=== PATIENT | male | born 1955 | race Caucasian/White ===

== ENCOUNTER 2024-11-25 09:24 | Outpatient (AMB) | payer MEDICARE, SELFPAY ==
--- NOTE | 2024-11-25 08:22 | MHC.OFFVIS ---
Vital Signs 11/25/24 09:30 Height 5 ft 10 in Weight 201 lb BMI 28.8 BP 122/64 Blood Pressure Location Rt brachial Pulse 74 Pulse Source Pulse Oximeter Pulse Oximetry (%) 98 Oxygen Delivery Method Room Air Intake Visit Reasons: asthma/ allergies Allergies amoxicillin Adverse Reaction (Verified 11/25/24 09:39) upset stomach Medication List - Last Reconciled 11/25/24 by Maxine Brown LPN albuterol sulfate 90 mcg/actuation 2 puffs inhalation Q6H PRN atorvastatin 10 mg PO DAILY cetirizine 10 mg PO DAILY PRN eletriptan (Relpax) take 1 tab at onset of headache; if no relief, may repeat 1 tab after at least 2 hrs; max = 2 tabs/24 hrs PO fluticasone furoate 100 mcg/actuation (Arnuity Ellipta) 1 inh inhalation DAILY fluticasone propionate 50 mcg/actuation (Children's Flonase Allergy Relief) 1 spray intranasal DAILY lotilaner 0.25% (Xdemvy) 1 drp ophthalmic (eye) Q12H PRN venlafaxine ER 225 mg PO DAILY HPI HPI asthma/ allergies: Details: Zak is a pleasant 69 year old male, less than 5 pack year history smoker, with underlying asthma. He was referred by PCP for pulmonary evaluation. He had previously been prescribed Arnuity however was only using intermittently. When he was not using consistently he reported wheezing, dyspnea as well as cough. Recent chest x-ray performed at [facility] reportedly unremarkable. He started using consistently for the last 3 weeks and has complete resolution of symptoms. He currently denies any respiratory symptoms. He reports asthma diagnosed as an adult, never required intubation hospitalizations related to respiratory distress. He endorses seasonal allergies using Flonase and Zyrtec with good effect. Denies any pets at home. Denies any recent allergy testing. Denies history of recurrent respiratory symptoms. 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 He denies any pertinent family history. [facility] Social History (Updated 11/25/24 @ 09:38 by Maxine Brown LPN) Patient Tobacco Use Status: Former Tobacco user Cigarette Packs Per Day: 1 Years Smoked: 3 Review of Systems Const Denies chills, Denies excessive sweating, Denies fever(s), Denies headache(s) and Denies night sweats Eyes Denies dry eyes, Denies irritation and Denies itchy eyes ENT Reports Normal hearing present, Denies headache(s), Denies nasal congestion, Denies nasal discharge, Denies post nasal drip and Denies sore throat Card Denies chest pain, Denies chest pain at rest, Denies chest pain with activity, Denies claudication, Denies leg edema, Denies dyspnea, Denies dyspnea on exertion, Denies orthopnea and Denies paroxysmal nocturnal dyspnea Resp Denies chest congestion, Denies cough, Denies excessive phlegm production, Denies pain on inspiration, Denies pain with cough, Denies dyspnea, Denies dyspnea on exertion, Denies stridor and Denies wheezing Musc Denies myalgias Neuro Reports Normal hearing present and Denies headache(s) Endo Denies excessive sweating Frandy/Lymph Denies lymphadenopathy Aller/Immun Denies itchy eyes, Denies seasonal rhinorrhea and Denies wheezing Physical Exam Vital Signs: Last Vital Signs Pulse 74 11/25/24 09:30 BP 122/64 11/25/24 09:30 Pulse Ox 98 11/25/24 09:30 Oxygen Delivery Method Room Air 11/25/24 09:30 BMI result Body Mass Index 28.8 Const General: cooperative, healthy appearing, comfortable, no acute distress, well developed and alert Orientation/consciousness: patient oriented x3 Limitations: no limitations HEENT Head: Yes normal to inspection, Yes normocephalic and Yes atraumatic Ears: hearing grossly normal bilaterally and external ears normal Eyes General: appearance normal, both eyes and all related structures Eyelids: Yes eyelids normal Sclerae: sclerae normal EOM: EOMs intact bilaterally Neck Neck: Yes normal visual inspection and Yes no lymphadenopathy Lymphatic: no lymphadenopathy noted Chest Chest palpation & inspection: normal inspection of the chest Resp Effort & Inspection: normal respiratory effort, able to speak in complete sentences, no audible wheezes, no cough, no stridor, not tachypneic, no tripod positioning and no use of accessory muscles Auscultation: clear to auscultation bilaterally Cardio Jugular venous distension: no JVD Rate: regular rate Rhythm: regular rhythm Skin Other: warm, dry General skin exam: no rashes or lesions noted Neuro General: patient oriented x3 Cranial nerves: Yes Normal hearing present Cognition (Neuro): normal cognition Gait exam (Neuro): Normal gait present Extrem General: Yes normal to inspection, Yes capillary refill normal, Yes no clubbing, cyanosis or edema and Yes no pedal edema Psych Appearance: grossly normal and well kempt Speech and movement: Normal speech and movement present and Clear speech present Affect: normal affect Attitude: cooperative Thought process: Normal thought process present Thought content: Normal thought content present Insight: Good insight present (Psych) Judgement: Good judgement present (Psych) Assessment & Plan Assessment & Plan (1) Asthma: Code(s): J45.909 - Unspecified asthma, uncomplicated Category: Medical (2) Environmental allergies: Code(s): Z91.09 - Other allergy status, other than to drugs and biological substances Category: Medical Plan Zak presents for pulmonary evaluation with known history of asthma. Currently denies any respiratory symptoms and has been well maintained on Arnuity. He did report increased cost of Arnuity, will trial Flovent. Will send for PFT to assess obstructive defect as well as RAST assessment allergic component. Recent chest x-ray reportedly unremarkable will attempt to obtain, may consider chest CT given prior occupational exposures. All questions were answered and patient is in agreement of plan. Will follow-up in 8-10 weeks or sooner if needed. Orders: Orders Immunoglobulin E 11/25/24 Z91.09 - Other allergy status, other than to drugs and biological substances Complete Blood Count Auto Diff 11/25/24 Z91.09 - Other allergy status, other than to drugs and biological substances Resp Allergy Profile Region I 11/25/24 Z91.09 - Other allergy status, other than to drugs and biological substances PFT pulmonary function test Today J45.909 - Unspecified asthma, uncomplicated Medications: New fluticasone propionate 110 mcg/actuation administer with spacer 2 puffs inhalation BID 12 grams 3RF Coding Level of Care Code New Pt Level 4 (16573) Diagnoses Asthma J45.909 Environmental allergies Z91.09
[2024-11-25 09:30] VITALS: BP 122/64; PULSE 74; O2SAT 98; BMI 28.8
--- OUTSIDE RECORDS SUMMARY | 2024-11-25 10:22 | XMS_ITS | Encounter Summary ---
Author Organization [facility] Address [address] [facility] [address] [place] [id number] Phone Care Team Providers Care Shank Archer Name Role Phone Mike Watkins MD Primary Care Provider + [phone] Mike Watkins MD Unavailable [phone] Mike Watkins MD Unavailable [phone] Encounter Details Date Type Department Care Team (Late st Contact Info) Description 12/01/2021 Procedure Pass [facility] Admitting Dept Virtual Department [address] [place] [address] Social History Tobacco Use Types Packs/Day Years Used Date Smoking Tobacco: Former Cigarettes 1 7 0 09/30/1972 - 09/30/1979 Smokeless Tobacco: Never Alcohol Use Standard Drinks/Week Comments Yes 14 (1 standard drink = 0.6 oz pu re alcohol) Child or Family Care Answer Date Record ed Do you have problems with on e of the following making it difficult for you to work, study, or receive health care? No 12/30/2020 Education Answer Date Recorded Are you interested in help w ith more adult education (for example, completing high school, GED, job training, learning the [place] language, technical skills, or developing parenting skills)? No 12/30/2020 Food Answer Date Recorded Within the past 6 months we worried whether our food would run out before we got money to buy more. Never True 12/30/2020 Within the past 6 months the food we bought just didn't last and we didn't have enough money to get more. Never True Residential Stability Answer Date Recor ded What is your housing situation today? I have connie sing 12/30/2020 How many times have you move d in the past 12 months? Zero (I did not move) 12/30/2020 06 Are you worried that in t he next 2 months, you may not have your own housing to live in? No 12/30/2020 Paying for Meds Answer Date Recorded Do you have trouble paying for medicines? No 12/30/2020 Paying Utility Bills Answer Date Record ed Do you have trouble paying your heating or elect ricity bill? No 12/30/2020 Transportation Answer Date Recorded Has the lack of transportati on kept you from medical appointments or from getting medications? No 12/30/2020 Unemployment Answer Date Recorded Are you currently unemployed or working on a part-time or temporary basis, and looking for work? Yes 12/30/2020 Sex and Gender Information Value Date Recorded Sex Assigned at Not on file Gender Identity Not on file Sexual Orientation Not on file documented as of this encounter Plan of Treatment Not on file documented as of this encounter Visit Diagnoses Not on filedocumented in this encounter Additional Health Concerns Infection Onset Date Last Indicated Resolved Time CoV-Risk 03/12/2022 03/12/2022 03/23/2022 1:22 AM EDT CoV-Presumed 07/18/2022 07/18/2022 08/08/2022 1:22 AM EST CoV-Risk 10/31/2023 10/31/2023 11/11/2023 1:24 AM EDT Assessment Noted Time PHQ-2 Depression Total Score: 0 12/31/19 21 2:32 PM EDT documented as of this encounter Care Teams Shank Archer Relationship Specialty Start Date End Date Mike Watkins MD [address] [place] [address], [address] [place] [address] PCP - General 05/23/17 Mike Watkins MD [address] [place] [address], [address] [place] [address] [email or web address] Insurance Assigned Provider 12/06/1802/10/22 Mike Watkins MD [address] [place] [address], [address] [place] [id number] [email or web address] Insurance Assigned Provider 11/09/23 documented as of this encounter Additional Source Comments The information contained in this document represents components of the legal health record. It is not the complete legal health record.[facility]
--- OUTSIDE RECORDS SUMMARY | 2024-11-25 10:22 | XMS_ITS | Encounter Summary ---
Author Organization [facility] Address [address] [facility] [address] [place] [address] Phone Care Team Providers Care Aviation Electronics Technician Name Role Phone Mike Watkins MD Primary Care Provider [phone]- [phone] Mike Watkins MD Unavailable [phone] Mike Watkins MD Unavailable [phone] Encounter Details Date Type Department Care Team (Late st Contact Info) Description 10/31/2018 Procedure Pass [facility] Admitting Dept Virtual Department [address] [place] [address] Social History Tobacco Use Types Packs/Day Years Used Date Smoking Tobacco: Former Cigarettes 1 7 0 09/30/1972 - 09/30/1979 Smokeless Tobacco: Never Alcohol Use Standard Drinks/Week Comments Yes 14 (1 standard drink = 0.6 oz pu re alcohol) Sex and Gender Information Value Date Recorded Sex Assigned at Not on file Gender Identity Not on file Sexual Orientation Not on file documented as of this encounter Plan of Treatment Not on file documented as of this encounter Visit Diagnoses Not on filedocumented in this encounter Additional Health Concerns Infection Onset Date Last Indicated Resolved Time CoV-Risk Comment:Per Ambulatory Triage Form 08/02/2021 08/17/202108/18 8:27 PM EST CoV-Exposed Comment:Recent close contact documented in the COVID-19 PCR/PRO order 08/02/2021 08/02/2021 08/17/2021 1:[address] COVID-19 08/17/2021 08/17/202109/07/2021 1:24 AM EST CoV-Risk 03/12/2022 03/12/2022 03/23/2022 1:22 AM EDT CoV-Presumed 07/18/2022 07/18/2022 08/08/2022 1:22 AM EST CoV-Risk 10/31/2023 10/31/2023 11/11/2023 1:24 AM EDT Assessment Noted Time PHQ-2 Depression Total Score: 0 09/30/19 1:30 PM EST documented as of this encounter Care Teams Aviation Electronics Technician Relationship Specialty Start Date End Date Mike Watkins MD [address] [place] [address], [address] [place] [address] [email or web address] PCP - General 05/23/17 Mike Watkins MD [address] [place] [address], [address] [place] [id number] [employer] Assigned Provider 12/06/1802/10/22 Mike Watkins MD [address] [place] [address], [address] [place] [id number] Insurance Assigned Provider 11/09/23 documented as of this encounter Additional Source Comments The information contained in this document represents components of the legal health record. It is not the complete legal health record.[facility]
--- OUTSIDE RECORDS SUMMARY | 2024-11-25 10:22 | XMS_ITS | Clinical Summary ---
Author Organization [facility] Address [address] [facility] [address] [place] [address] Phone Care Team Providers Care Mail Sorting Supervisor Name Role Phone Mike Watkins MD Primary Care Provider [phone] Mike Watkins MD Unavailable [phone] Allergies Active Allergy Reactions Criticality Noted Date Comments Amoxicillin Low 10/31/2018 nausea Medications Medication Sig Dispensed Refills Start Date End Date Status ibuprofen (ADVIL,MOTRIN) 200 MG tablet Take 400 mg by mouth 2 (two) times a day as needed. Takes BID for arthritis 10/01/2011 Active eletriptan (RELPAX) 40 MG tablet Take 1 tablet (40 mg total) by mouth as directed. 1 tablet at onset of headache, may repeat x1 after 2 hours if headache returns 10 tablet 12/09/2018 Active albuterol 90 mcg/actuation inhaler Inhale 2 puffs into the lungs every 6 (six) hours as needed for wheezing. 18 g 10/08/2023 Active fluticasone propionate (FLONASE) 50 mcg/actuation nasal spray 1 spray by Nasal route daily. 16 g 5 11/12/2023 Active XDEMVY 0.25 % Drop Place 1 drop into each eye 2 (two) times a day. 11/21/2023 Active cetirizine (ZYRTEC) 10 MG tablet Take 10 mg by mouth daily. Active atorvastatin (LIPITOR) 10 MG tablet take 1 tablet by mouth every day 90 tablet 3 02/10/2024 Active meloxicam (MOBIC) 15 MG tablet Take 1 tablet (15 mg total) by mouth daily for 15 days. With food 15 tablet 02/27/2024 Active venlafaxine (EFFEXOR-XR) 75 MG 24 hr capsuleIndication s:Chronic depression take 3 capsules by mouth every day 270 capsule 3 03/27/2024 Active ARNUITY ELLIPTA 100 mcg/actuation DsDv INHALE 1 PUFF BY MOUTH EVERY DAY 30 each 1 09/28/2024 Active predniSONE (DELTASONE) 10 MG tabletIndications :Acute cough Take 4 tablets (40 mg total) by mouth daily for 5 days. 20 tablet 11/06/2024 11/11/2024 benzonatate (TESSALON) 100 MG capsuleIndication s:Acute cough Take 1 capsule (100 mg total) by mouth 3 (three) times a day as needed for cough. 30 capsule 11/06/2024 11/16/2024 Active Problems Problem Noted Date Diagnosed Date Mild intermittent asthma without complication Assessment & Plan (08/07/2024 3:50 PM EST): Recent exacerbation with wheezing, now resolved. Patient is on Arnuity. Missed a few doses but has resumed. -Continue Arnuity. -If symptoms worsen or patient becomes wheezy, consider adding prednisone. Assessment & Plan (07/13/2024 12:04 PM EST): Recent exacerbation with wheezing and coughing, improved with Arnuity inhaler. Discussed the importance of consistent use of Arnuity and the potential for intermittent use based on symptomatology and cost considerations. -Continue Arnuity inhaler daily. -Consider use of Albuterol during acute coughing fits or wheezing episodes. -Reach out to program coordinator for residence life to explore cost-effective alternatives to Arnuity. -If symptoms worsen, consider a course of Prednisone. Non-seasonal allergic rhinitis 06/19/2023 Assessment & Plan (07/13/2024 12:04 PM EST): Symptoms of stuffiness, not currently on daily antihistamine due to side effects of drowsiness. -Consider trial of Claritin for allergy symptoms as it may be less sedating than Zyrtec. Atherosclerosis of aorta 12/30/2020 Chronic depression 09/30/2018 Other hyperlipidemia 09/30/2018 Migraine without aura and wi thout status migrainosus, not intractable 09/30/2018 Encounters Date Type Department Care Team Description 11/06/2024 1:20 PM EDT Office Visit [facility] at [address] [place] [address] Tiffanie Covington, LAYNE Acute cough (Primary Dx) 11/05/[address] [place] [address] Mike Watkins MD Request For Order(s) 10/28/[address] [place] [address] Mike Watkins MD Medication Problem 10/21/[address] [place] [address] Mike Watkins MD Referral 09/26/[address] [place] [address] Mike Watkins MD Medication Refill from Last 3 Months Immunizations Name Administration Dates Next Due COVID-19 (Pre-05/27) Moderna Vaccine, mRNA, PF 11/01/2020,10/04/2020 Influenza High-Dose Quadriva lent Preservative Free IM 05/21/2023,07/09/2022,06/30/2021 Influenza Quadrivalent MDCK Preservative Free IM 05/15/2020,06/01/2018 Influenza Quadrivalent Preservative Free IM 05/05 Pneumococcal conjugate PCV20 02/12/2023 Pneumococcal polysaccharide PPSV23 12/30/2020 RSV Vaccine (monovalent, adjuvanted) 07/24/2023 Td (adult),2 Lf Tetanus Toxo id, PF, Adsorbed 11/19/2007 Tdap 09/30/2018 Zoster live 01/04/2015 Family History Medical History Relation Comments Heart attack Father Diabetes type II Mother Lymphoma Mother Relation Status Comments Father Alive Mother Social History Tobacco Use Types Packs/Day Years [...] Answer Date Recorded Are you interested in more education? Not on fer e 12/31/2022 Are you concerned about learning? Not on file 12/31/2022 No 12/31/2022 No 12/31/2022 Food Answer Date Recorded Within the past [...] is your housing situation today? I have conine sing 12/30/2020 How many times have you [...] basis, and looking for work? Yes 12/30/2020 Digital Access Answer Date Recorded No 12/31/2022 No 12/31/2022 Reliable internet access at home? Not on file 12/31/2022 Device with a working camera? Not on file Intimate Partner Violence Answer Date R ecorded Denied Basic Needs Not on file 02/07/2024 In the past 12 months have y ou been in a relationship with a person who hurts, threatens, or tries to control you? No 02/07/2024 Worried food would run out Not on file 02/06 In the past 12 months have y ou been in a relationship with a person who hurts, threatens, or tries to control you? No 02/07/2024 Sex and Gender Information Value Date Recorded Sex Assigned at Not on file Gender Identity Not on file Sexual Orientation Not on file Last Filed Vital Signs Vital Sign Reading Time Taken Comments Blood Pressure 129/78 08/07/2024 3:11 PM EST Pulse 80 11/06/2024 1:28 PM EDT Temperature 36.4 ??C (97.5 ??F) 11/06/2024 1:28 PM ED T Respiratory Rate 16 11/06/2024 1:28 PM EDT Oxygen Saturation 96% 11/06/2024 1:28 PM EDT Inhaled Oxygen Concentration - - Weight 91.3 kg (201 lb 3.2 oz) 08/07/2024 3:11 P M EST Height 175.6 cm (5' 9.13 ) 07/13/2024 9:23 AM ES T Body Mass Index 29.6 07/13/2024 9:23 AM EST Plan of Treatment Health Maintenance Due Date Last Done Comments COLOGUARD 1999 FIT TEST 1999 FOBT 1999 SIGMOIDOSCOPY 1999 VIRTUAL COLONOSCOPY 1999 COVID-19 VACCINE ( season) 2024 07/24/2023, 06/30/2021, 11/01/2020, Additional history exists DEPRESSION SCREENING 02/13/2025 02/14/2024 LIPID PANEL 02/19/2025 02/20/2024, 02/02, 01/30/2022, Additional history exists COLONOSCOPY 12/01/2026 12/01/2021, 10/04, 12/09/2007 COLORECTAL CANCER SCREENING 12/01/2026 Adult Td,Tdap Booster 09/30/2028 09/30/2018, 008 HEPATITIS C SCREENING Completed 10/06/2018, 019 ABDOMINAL AORTIC ANEURYSM (AAA) SCREENING Completed 11/25/2020 PNEUMOCOCCAL VACCINES (50+ years) Completed 02/12/2023, 12/30/2020 RSV VACCINE Completed 07/24/2023 ZOSTER VACCINES Completed 11/01/2024, 12/0 04/2024, 01/04/2015 SMOKING STATUS SCREENING (Once After 26 Yrs) Completed 11/06/2024 HEPATITIS A VACCINES Aged Out No long er eligible based on patient's age to complete this topic HIB VACCINES Aged Out No longer eligi ble based on patient's age to complete this topic MENINGOCOCCAL VACCINES (ACWY) Aged Out No longer eligible based on patient's age to complete this topic Medical Devices Implanted Type Area Prosthetics Assistant Device Identifier Shelf Expiration Date Model / Serial / Lot Surya Left: Hip Hemoclip Duraclip [id number] Lower Bx/10ea - [id number] Implanted:Qty: 1 on 10/31/2018 by Garo Alvarado MD at [facility] [employer] CONMED [id number] / / Procedures Procedure Name Priority Date/Time Associated Diagnosis Comments LIPID PANEL Routine 02/20/2024 9:49 AM EDT Hyperlipidemia, unspecified hyperlipidemia type ENDOSCOPY, COLON 12/01/2021 8:34 AM EDT US ABDOMINAL AORTIC SCREENING Routine 11/25/2020 8:29 AM EDT Encounter for abdominal aortic aneurysm (AAA) screening HEPATITIS C ANTIBODY, QUALITATIVE Routine 10/06/2018 8:02 AM EST Annual physical exam from Last 3 Months or Most Recently Relevant to Health Maintenance Results * (ABNORMAL) Lipid panel (02/20/2024 9:49 AM EDT) HDL 93 mg/dL [facility] Comment: ? Interpretation <40 mg/dL: Low HDL cholesterol (major risk factor for CHD) Greater than or equal to 60 mg/dL: High HDL cholesterol ( negative risk factor for CHD) HDL - cholesterol is affected by a number of factors, e.g. smoking, excerise, hormones, sex and age. CHOLESTEROL 217 0 - 240 mg/dL [facility] TRIGLYCERIDES 84 30 - 160 mg/dL [facility] LDL 107 50 - 129 mg/dL [facility] Comment: LDL levels in terms of risk for coronary heart disease: <100 mg/dL: Optimal 100-129 mg/dL: Near or above optimal 130-159 mg/dL: Borderline high 160-189 mg/dL: High >190 mg/dL: Very High CARDIAC RISK RATIO 2.3(L) 3.4 - 5.0 C [facility] Blood 02/20/2024 9:49 AM EDT 02/20/2024 9:50 AM EDT Mike Watkins MD LAB BLOOD ORDERABL ES [address] [address] * ENDOSCOPY, COLON (12/01/2021 8:34 AM EDT) Narrative Transcriptions Garo Alvarado MD - 12/01/2021 8:34 AM EDT Patient Name: Zak Nelson Attending MD:: GARO ALVARADO MD Procedure Date: 12/01/2021 8:34 AM Date of : 1955 Age: 66 Admit Type: Outpatient Gender: Male Room: [facility] Referring MD: MIKE WATKINS MD Exam Type: Colonoscopy Indications: Surveillance: Personal history of colonic polyps (unknown histology) on last colonoscopy 3 yearsago Medications: Monitored Anesthesia Care Procedure: Informed consent was obtained from the patientafter discussion of the indications, limitations, alternatives, benefits, and risks of the procedure. Risks specifically discussed include but are not limited to medication reactions, missed lesions, bleeding, perforation, or the need for emergent surgery. Throughout the procedure, the patient's blood pressure, pulse, end-tidal CO2, and oxygensaturations were monitored continuously. The Olympus adult colonoscope CFQ 180AL #5 was introduced through the anus and advanced to thececum, identified by appendiceal orifice and ileocecalvalve. The colonoscopy was performed without difficulty.The patient tolerated the procedure well. The qualityof the bowel preparation was adequate to identifypolyps. Complications: No immediate complications. Findings: The perianal and digital rectal examinations were normal. Pertinent negatives include normal prostate (size, shape, and consistency). The colon (entire examined portion) appearednormal. The entire examined colon appeared normal on direct and retroflexion views. Impression: - The entire examined colon is normal. - The entire examined colon is normal on direct and retroflexion views. - No specimens collected. Recommendation: - Discharge patient to home. - Resume previous diet. - Continue present medications. - Repeat colonoscopy in 5 years for surveillance. - Return to my office in 5 years. GARO ALVARADO MD 12/01/2021 9:14:26 AM This report has been signed electronically. Number of Addenda: 0 Note Initiated On: 12/01/2021 8:34 AM Procedure Code(s): --- Professional --- G0105, Colorectal cancer screening; colonoscopy on individual at high risk --- Technical --- G0105, Colorectal cancer screening; colonoscopy on individual at high risk Diagnosis Code(s): --- Professional --- Z86.010, Personal history of colonic polyps --- Technical --- Z86.010, Personal history of colonic polyps CPT copyright 2020 [employer]. All rights reserved. The codes documented in this report are preliminary and upon lead technical writer reviewmay be revised to meet current compliance requirements. Procedure Date: 12/01/2021 8:34:[address] [place] [address] Mike Watkins MD GI PROCEDURE ORDER COLLEEN * US Abdominal Aortic Screening (11/25/2020 8:29 AM EDT) Anatomical Region Laterality Modality Abdomen Ultrasound 11/25/2020 8:32 AM EDT Impressions 11/25/2020 8:33 AM EDT Aortic atherosclerotic changes without aneurysmal dilatation. Narrative 11/25/2020 8:33 AM EDT Screening ultrasound examination of the aorta is performed and multiple static images obtained. There is no evidence of abdominal aortic aneurysm. There is normal tapering of the aorta from a proximal 2.4 x 2.4 to a distal 1.6 x 1.8 cm. Both iliacs measure 0.9 x 1.0 cm in diameter. No gross stenosis on color imaging. Mild atherosclerotic plaque formation seen in the wall with scattered areas of calcification. Procedure Note Hans Summers MD - 11/25/2020 Screening ultrasound examination of the aorta is performed and multiplestatic images obtained. There is no evidence of abdominal aortic aneurysm.There is normal tapering of the aorta from a proximal 2.4 x 2.4 to adistal 1.6 x 1.8 cm. Both iliacs measure 0.9 x 1.0 cm in diameter. Nogross stenosis on color imaging. Mild atherosclerotic plaque formationseen in the wall with scattered areas of calcification. IMPRESSION: Aortic atherosclerotic changes without aneurysmal dilatation. Mike Watkins MD IMG US ABDOMEN * Hepatitis C antibody, qualitative (10/06/2018 8:02 AM EST) HCV Negative Negative [facility] Comment: This is a screening test and should be confirmed with molecular testing Blood 10/06/2018 8:02 AM EST 10/06/2018 8:04 AM EST Mike Watkins MD LAB BLOOD ORDERABL ES [address] [address] from Last 3 Months or Most Recently Relevant to Health Maintenance Care Teams Mail Sorting Supervisor Relationship Specialty Start Date End Date Mike Watkins MD [address] [place] [address], [address] [place] [address] [email or web address] PCP - General 05/23/17 Mike Watkins MD [address] [place] [address], [address] [place] [address] [email or web address] Insurance Assigned Provider 11/09/23 Additional Source Comments The information contained in this document represents components of the legal health record. It is not the complete legal health record.[facility]
--- OUTSIDE RECORDS SUMMARY | 2024-11-25 10:22 | XMS_ITS | Encounter Summary ---
Author Organization [facility] Address [facility] [address] [place] [address] Phone Care Team Providers Care Piece Work Checker Name Role Phone Mike Watkins MD Primary Care Provider [phone] Mike Watkins MD Unavailable [phone] Mike Watkins MD Unavailable [phone] Encounter Details Date Type Department Care Team (Latest Contact Info) Description 06/07/2017 Transcribe Orders [facility] [address] [place] [address] [place] [address] Mike Watkins MD [address] [facility], [address] [place] [address] [email or web address] Routine general medical examination at a health care facility (Primary Dx) Social History Tobacco Use Types Packs/Day Years Used Date Smoking Tobacco: Never Assessed Sex and Gender Information Value Date Recorded Sex Assigned at Not on file Gender Identity Not on file Sexual Orientation Not on file documented as of this encounter Plan of Treatment Not on file documented as of this encounter Results * PSA (screening) (06/07/2017 8:16 AM EDT) PSA 0.45 0 - 4.00 ng/mL [facility] Blood 06/07/2017 8:16 AM EDT 06/07/2017 8:18 AM EDT Mike Watkins MD LAB BLOOD ORDERABL ES Performing Organization Address [facility]/ZIP Co de Phone Number [address] [address] * (ABNORMAL) Lipid panel (06/07/2017 8:16 AM EDT) HDL 82 mg/dL [facility] Comment: Interpretation: Risk Level ?Males Decreased ? >45 mg/dL Average ? 40-45 mg/dL Increased ? <40 mg/dL CHOLESTEROL 243(H) 0 - 240 mg/dL [facility] TRIGLYCERIDES 123 30 - 160 mg/dL [facility] LDL 136(H) 50 - 129 mg/dL [facility] Comment: LDL levels in terms of risk for coronary heart disease: <100 mg/dL: Optimal 100-129 mg/dL: Near or above optimal 130-159 mg/dL: Borderline high 160-189 mg/dL: High >190 mg/dL: Very High CARDIAC RISK RATIO 3.0(L) 3.4 - 5.0 C [facility] Blood 06/07/2017 8:16 AM EDT 06/07/2017 8:18 AM EDT Mike Watkins MD LAB BLOOD ORDERABL ES Performing Organization Address [facility]/ZIP Co de Phone Number [address] [address] * (ABNORMAL) Basic metabolic panel (06/07/2017 8:16 AM EDT) SODIUM 140 133 - 146 mmol/L [facility] CHLORIDE 102 96 - 108 mmol/L [facility] POTASSIUM 4.6 3.3 - 5.1 mmol/L [facility] CO2 29 21 - 35 mmol/L [facility] BUN 14 6 - 19 mg/dL [facility] CREATININE 0.80 0.5 - 1.5 mg/dL [facility] GLUCOSE 104(H) 70 - 99 mg/dL [facility] CALCIUM 9.3 8.4 - 10.3 mg/dL [facility] EGFR >60 >60 mL/min/1.7 3m2 [facility] Comment:Abnormal if <60. If patient is -Tunisian, multiply the result by 1.21. ANION GAP 14 10 - 20 mmol/L [facility] Blood 06/07/2017 8:16 AM EDT 06/07/2017 8:18 AM EDT Mike Watkins MD LAB BLOOD ORDERABL ES [facility] [address] [place] [address] documented in this encounter Visit Diagnoses Diagnosis Routine general medical examination at a health care facility- Primary documented in this encounter Additional Health Concerns Infection Onset Date Last Indicated Resolved Time CoV-Risk Comment:Per Ambulatory Triage Form 08/02/2021 08/17/202108/18 8:27 PM EST CoV-Exposed Comment:Recent close contact documented in the COVID-19 PCR/PRO order 08/02/2021 08/02/2021 08/17/2021 1:[address] COVID-19 08/17/2021 08/17/2021 09/07/2021 1:24 AM EST CoV-Risk 03/12/2022 03/12/2022 03/23/2022 1:22 AM EDT CoV-Presumed 07/18/2022 07/18/2022 08/08/2022 1:22 AM EST CoV-Risk 10/31/2023 10/31/2023 11/11/2023 1:24 AM EDT documented as of this encounter Care Teams Piece Work Checker Relationship Specialty Start Date End Date Mike Watkins MD [address] [place] [address], [address] [place] [address] [email or web address] PCP - General 05/23/17 Mike Watkins MD [address] [place] [address], [address] [place] [address] Insurance Assigned Provider 12/06/1802/10/22 Mike Watkins MD [address] [place] [address], [address] [place] [address] [email or web address] Insurance Assigned Provider 11/09/23 documented as of this encounter Additional Source Comments The information contained in this document represents components of the legal health record. It is not the complete legal health record.[facility]
--- OUTSIDE RECORDS SUMMARY | 2024-11-25 10:23 | XMS_ITS | Encounter Summary ---
Author Organization [facility] Address [address] [facility] [address] [place] [address] Phone Care Team Providers Care Regional Construction Manager Name Role Phone Mike Watkins MD Primary Care Provider [phone] Mike Watkins MD Unavailable [phone] Reason for Visit * Reason Onset Date Comments Medication Problem 10/28/2024 Encounter Details Date Type Department Care Team (Late st Contact Info) Description 10/28/2024 Telephone [facility] [address] [place], [place] [phone] Mike Watkins MD [address] [facility] [place], [place] [id number] [email or web address] Medication Problem Social History Tobacco Use Types Packs/Day Years [...] on file documented as of this encounter Progress Notes * Mike Watkins MD - 10/29/2024 10:10 AM EDT Thank you * Alan Headley - 10/29/2024 8:36 AM EDT Contacted the patient???s insurance regarding Arnuity Ellipta. The insurance examining clerk confirmed that Arnuity Ellipta is the only medication covered under the patient???s pharmacy benefits, and the alternatives for this medication are a non-formulary and classified as Tier 4. The school admissions representative also stated that the patient has a $590 deductible, and once met, the estimated copay for Arnuity Ellipta will be $40.16. Contacted the patient and informed him of his insurance coverage details, deductible, and estimatedcopay. * Mike Watkins MD - 10/28/2024 5:32 PM EDT Im not aware of this. All inhalers cost a fortune and until he uses up the [facility] for med coverage with medicare. I anticipate arnuity will be cheaper after he gets beyond this expense. Yescleri any opinion on this? * Cynthia Carmichael RN - 10/28/2024 4:30 PM EDT Spoke to patient. His main concern for this call is the high cost of Arnuity, he does not feel he needs to be seen again for his symptoms. Arnuity is considered a tier 3 drug with his insurance, costing him $600. Medicare has indicated that this is the lowest cost inhaler available to him. It is very effective for his symptoms when he takes it. If he does not take it, he develops cough and sinus headaches, worst at night, though he paco cough during the day as well. Albuterol inhaler temporarily stops the cough. To PCP and MAC- is it possible to do a tier exemption for his Arnuity? I'm not sure what the criteria are or if this situation would meet those criteria, but the Arnuity is very effective for him andhe would like to stay on it without worrying about cost. * Winifred Ryan - 10/28/2024 4:24 PM EDT [facility] Top Smart Phrases: Red Call Intake Call Back Number: (if not patient, name/relationship and if patient is with caller) Red Symptom(s): Triage (Red Wheezing ) and Triage (Yellow- Cough) When did these symptoms start? 2-3 Weeks Have you ever experienced these symptoms before? YES Additional information: Pt was seen for same thing in 08/2024 it went away and now its back Transfer LIVE call to RN for prompt triage Reason for Call = TRIAGE Comment = RED + symptom Scripting: Please hold on the line while I get a clinical restaurant team member to further assist you.?? documented in this encounter Plan of Treatment Not on file documented as of this encounter Visit Diagnoses Not on filedocumented in this encounter Additional Health Concerns Assessment Noted Time PHQ-2 Depression Total Score: 0 02/14/20 24 8:40 AM EDT documented as of this encounter Care Teams Regional Construction Manager Relationship Specialty Start Date End Date Mike Watkins MD [address] [place] [address], [address] [place] [address] PCP - General 05/23/17 Mike Watkins MD [address] [place] [address], [address] [place] [address] Insurance Assigned Provider 11/09/23 documented as of this encounter Additional Source Comments The information contained in this document represents components of the legal health record. It is not the complete legal health record.[facility]
--- OUTSIDE RECORDS SUMMARY | 2024-11-25 10:23 | XMS_ITS | Encounter Summary ---
Author Organization [facility] Address [address] [facility] [address] [place] [address] Phone Care Team Providers Care Bulk Sealer Operator Name Role Phone Mike Watkins MD Primary Care Provider + [phone] Mike Watkins MD Unavailable [phone] Reason for Referral * Consultation (Within 1 month) - Authorized Specialty Diagnoses / Procedures Referred By Contac t Referred To Contact Diagnoses Non-seasonal allergic rhinitis Mild intermittent asthma without complication Mike Watkins MD [address] [place] [address], [address] [place] [address] Email: [email or web address] Referral ID Status Reason Start Date Expiration Date V isits Requested Visits Authorized [id number] Authorized 10/21/2024 10/21/2025 6 6 Reason for Visit * Reason Onset Date Comments Referral 10/21/2024 Encounter Details Date Type Department Care Team (Late st Contact Info) Description 10/21/2024 Telephone [facility] [address] [place] [id number] Mike Watkins MD [address] [place] [address], [address] [place], [place] [id number] [email or web address] Referral Social History Tobacco Use Types Packs/Day Years [...] is your housing situation today? I have conniepaige holcomb 12/30/2020 How many times have you move [...] Progress Notes * Mike Watkins MD - 10/21/2024 5:52 PM EDT Signed * Cynthia Carmichael RN - 10/21/2024 2:14 PM EDT Seen in July & August for asthma related symptoms. Referral pended if OK * Winifred Ryan - 10/21/2024 2:07 PM EDT [facility] Top Smart Phrases: Referral Request 1. Name of the office where the patient has been seen/requests to be seen: [facility] 2. Reason for referral/specialist appointment and the diagnosis code: allergy Asthma 2A. Have you seen this provider before for this same problem? 2B. If this is a new problem, is your PCP aware of your symptoms? 3. Date of appointment(s): 4. Name of specialist provider: 5. NPI number to enter for referral authorization (enter n/a if not available): 6. Number of visits requested for referral: 7. Fax number of specialist office to send referral authorization: documented in this encounter Plan of Treatment Scheduled Referrals Name Type Priority Associated Diagnoses Orde r Schedule Ambulatory referral to External Pulmonology Outpatient Referral Routine Non-seasonal allergic rhinitis Mild intermittent asthma without complication Ordered: 10/21/2024 documented as of this encounter Visit Diagnoses Diagnosis Non-seasonal allergic rhinitis- Primary Allergic rhinitis, cause unspecified Mild intermittent asthma without complication documented in this encounter Additional Health Concerns Assessment Noted Time PHQ-2 Depression Total Score: 0 02/14/20 24 8:40 AM EDT documented as of this encounter Care Teams Bulk Sealer Operator Relationship Specialty Start Date End Date Mike Watkins MD [address] [place] [address], [address] [place] [address] [email or web address] PCP - General 05/23/17 Mike Watkins MD [address] [place] [address], [address] [place] [address] [email or web address] Insurance Assigned Provider 11/09/23 documented as of this encounter Additional Source Comments The information contained in this document represents components of the legal health record. It is not the complete legal health record.[facility]
== END 2024-11-25 10:08 | disposition home or self-care (01) ==
LOC: HO.HPSW 09:24
PROVIDERS: PCP Family Medicine; Referring Provider Nurse Practitioner Family; Visit Provider Nurse Practitioner Family
DX: J45.909 Unspecified asthma, uncomplicated (principal); Z91.09 Other allergy status, other than to drugs and biological substances
CPT/HCPCS: 99204

== ENCOUNTER → 2024-11-25 09:24 | Outpatient (BNVA) | payer MEDICARE, SELFPAY | PROVIDERS: PCP Family Medicine; Referring Provider Nurse Practitioner Family; Visit Provider Nurse Practitioner Family | DX: Z13.89 Encounter for screening for other disorder (principal) | CPT/HCPCS: 99202 ==

== ENCOUNTER 2024-11-25 10:10 | Outpatient (REF) | payer MEDICARE, SELFPAY ==
[2024-11-25 11:43] LABS: MANUAL DIFF FLAG NO
[2024-11-25 11:49] LABS: Basophils Absolute Auto 0.1 X10*3/uL (0.0-0.2); Basophils Percent Auto 0.8 % (0-2); Eosinophils Absolute Auto 0.4 X10*3/uL (0.0-0.4); Eosinophils Percent Auto 6.8 % (0-4); Hematocrit 46.2 % (42.0-52.0); Hemoglobin 15.6 g/dl (14.0-18.0); Imm Gran Abs Auto 0.01 X10*3/uL (0.00-0.03); Imm Gran Pct Auto 0.2 % (0.0-0.4); Lymphocytes Absolute Auto 1.6 X10*3/uL (1.2-4.9); Lymphocytes Percent Auto 26.4 % (20-40); Mean Corpuscular HGB Conc 33.8 g/dl (31.0-36.0); Mean Corpuscular Hemoglobin 30.1 pg (27.0-33.0); Mean Platelet Volume 9.3 fL (9.4-12.4); Monocytes Absolute Auto 0.6 X10*3/uL (0.1-1.2); Monocytes Percent Auto 9.8 % (2-11); Neutrophils Absolute Auto 3.5 x10*3/uL (2.0-8.3); Platelet Count 239 X10*3/uL (160-400); Red Blood Count 5.19 X10*6/uL (4.60-5.80); Red Cell Distribution Width 12.2 % (11.0-16.0); White Blood Count 6.2 X10*3/uL (4.8-10.8)
--- OUTSIDE RECORDS SUMMARY | 2024-11-25 11:49 | XMS_ITS | Encounter Summary ---
Author Organization [facility] Address [address] [facility] [address] [place] [address] Phone Care Team Providers Care Mailroom Supervisor Name Role Phone Mike Watkins MD Primary Care Provider + [phone] Mike Watkins MD Unavailable [phone] Mike Watkins MD Unavailable [phone] Encounter Details Date Type Department Care Team (Late st Contact Info) Description 12/01/2021 Procedure Pass [facility] Endoscopy Admitting Dept Virtual Department [address] [place] [address] Social History Tobacco Use Types Packs/Day Years [...] high school, GED, job training, learning the Cameroonian language, technical skills, or developing parenting skills)? [...] documented as of this encounter Care Teams Mailroom Supervisor Relationship Specialty Start Date End Date Mike Watkins MD [address] [place] [address], [address] [place] [address] PCP - General 05/23/17 Mike Watkins MD [address] [place] [address], [address] [place] [address] [email or web address] Insurance Assigned Provider 12/06/1802/10/22 Mike Watkins MD [address] [place] [address], [address] [place] [id number] [email or web address] Insurance Assigned Provider 11/09/23 documented as of this encounter Additional Source Comments The information contained in this document represents components of the legal health record. It is not the complete legal health record.[facility]
--- OUTSIDE RECORDS SUMMARY | 2024-11-25 11:49 | XMS_ITS | Clinical Summary ---
Author Organization [facility] Address [address] [facility] [address] [place] [address] Phone Care Team Providers Care Vp Business Development Name Role Phone Mike Watkins MD Primary Care Provider [phone] Mike Watkins MD Unavailable [phone] Allergies Active Allergy Reactions Criticality Noted Date [...] fits or wheezing episodes. -Reach out to digital account coordinator to explore cost-effective alternatives to Arnuity. -If [...] Description 11/06/2024 1:20 PM EDT Office Visit [facility] [address] [place] [address] Tiffanie Covington, LAYNE Acute cough (Primary Dx) 11/05/[address] [place] [address] Mike Watkins MD Request For Order(s) 10/28/[address] [place] [address] Mike Watkins MD Medication Problem 10/21/[address] [place] [address] Mike Watkins MD Referral 09/26/[address] [place] [address] Mike Watkins MD Medication Refill from Last [...] this topic Medical Devices Implanted Type Area Conventions Reservationist Device Identifier Shelf Expiration Date Model / Serial / Lot Surya Left: Hip Hemoclip Duraclip [id number] Lower Bx/10ea - [id number] Implanted:Qty: 1 on 10/31/2018 by Garo Alvarado MD at [facility] [employer]MED [id number] / / Procedures Procedure Name Priority Date/Time [...] (02/20/2024 9:49 AM EDT) HDL 93 mg/dL [facility] Comment: ? Interpretation <40 mg/dL: Low HDL cholesterol (major risk factor for CHD) Greater than or equal to 60 mg/dL: High HDL cholesterol ( negative risk factor for CHD) HDL - cholesterol is affected by a number of factors, e.g. smoking, excerise, hormones, sex and age. CHOLESTEROL 217 0 - 240 mg/dL [facility] TRIGLYCERIDES 84 30 - 160 mg/dL [facility] LDL 107 50 - 129 mg/dL [facility] Comment: LDL levels in terms of risk for coronary heart disease: <100 mg/dL: Optimal 100-129 mg/dL: Near or above optimal 130-159 mg/dL: Borderline high 160-189 mg/dL: High >190 mg/dL: Very High CARDIAC RISK RATIO 2.3(L) 3.4 - 5.0 C [facility] Blood 02/20/2024 9:49 AM EDT 02/20/2024 9:50 AM EDT Mike Watkins MD LAB BLOOD ORDERABL ES [address] [address] * ENDOSCOPY, COLON (12/01/2021 8:34 AM EDT) Narrative Transcriptions Garo Alvarado MD - 12/01/2021 8:34 AM EDT Patient Name: Zak Nelson Attending MD:: GARO ALVARADO MD Procedure Date: 12/01/2021 8:34 AM Date of : 1955 Age: 66 Admit Type: Outpatient Gender: Male Room: [facility] Referring MD: MIKE WATKINS MD Exam Type: [...] history of colonic polyps CPT copyright 2020 [employer]. All rights reserved. The codes documented in this report are preliminary and upon sales professional bilingual reviewmay be revised to meet current compliance requirements. Procedure Date: 12/01/2021 8:34:[address] [place] [address] Mike Watkins MD GI PROCEDURE ORDER [...] (10/06/2018 8:02 AM EST) HCV Negative Negative [facility] Comment: This is a screening test and should be confirmed with molecular testing Blood 10/06/2018 8:02 AM EST 10/06/2018 8:04 AM EST Mike Watkins MD LAB BLOOD ORDERABL ES [address] [address] from Last 3 Months or Most Recently Relevant to Health Maintenance Care Teams Vp Business Development Relationship Specialty Start Date End Date Mike Watkins MD [address] [place] [address], [address] [place] [address] [email or web address] PCP - General 05/23/17 Mike Watkins MD [address] [place] [address], [address] [place] [address] [email or web address] Insurance Assigned Provider 11/09/23 Additional Source Comments The information contained in this document represents components of the legal health record. It is not the complete legal health record.[facility]
--- OUTSIDE RECORDS SUMMARY | 2024-11-25 11:49 | XMS_ITS | Encounter Summary ---
Author Organization [facility] Address [address] [facility] [address] [place] [address] Phone Care Team Providers Care Ticket Counter Name Role Phone Mike Watkins MD Primary Care Provider [phone]- [phone] Mike Watkins MD Unavailable [phone] Reason for Visit * Reason Onset Date Comments Medication Problem 10/28/2024 Encounter Details Date Type Department Care Team (Late st Contact Info) Description 10/28/2024 Telephone [facility] [address] [place], [place] [phone] Mike Watkins MD [address] [facility] [place], [place] [phone] [email or web address] Medication Problem Social History Tobacco Use Types [...] the patient???s insurance regarding Arnuity Ellipta. The life insurance specialist confirmed that Arnuity Ellipta is the only medication covered under the patient???s pharmacy benefits, and the alternatives for this medication are a non-formulary and classified as Tier 4. The operations support representative also stated that the patient has a $590 deductible, and once met, the estimated copay for Arnuity Ellipta will be $40.16. Contacted the patient and informed him of his insurance coverage details, deductible, and estimatedcopay. * Mike Watkins MD - 10/28/2024 5:32 PM EDT Im not aware of this. All inhalers cost a fortune and until he uses up the [address] [facility] for med coverage with medicare. I anticipate [...] Winifred Ryan - 10/28/2024 4:24 PM EDT [facility] P[facility] Top Smart Phrases: Red Call Intake [...] the line while I get a clinical steamship agent to further assist you.?? documented in this encounter Plan of Treatment Not on file documented as of this encounter Visit Diagnoses Not on filedocumented in this encounter Additional Health Concerns Assessment Noted Time PHQ-2 Depression Total Score: 0 02/14/20 24 8:40 AM EDT documented as of this encounter Care Teams Ticket Counter Relationship Specialty Start Date End Date Mike Watkins MD [address] [place] [address], [address] [place] [address] PCP - General 05/23/17 Mike Watkins MD [address] [place] [address], [address] [place] [address] Insurance Assigned Provider 11/09/23 documented as of this encounter Additional Source Comments The information contained in this document represents components of the legal health record. It is not the complete legal health record.[facility]
--- OUTSIDE RECORDS SUMMARY | 2024-11-25 11:49 | XMS_ITS | Encounter Summary ---
Author Organization [facility] Address [facility] [address] [place] [address] Phone Care Team Providers Care House Painter Name Role Phone Mike Watkins MD Primary Care Provider + [phone] Mike Watkins MD Unavailable [phone] Mike Watkins MD Unavailable [phone] Encounter Details Date Type Department Care Team (Latest Contact Info) Description 06/07/2017 Transcribe Orders [facility] [address] [place] [address] [place] [address] Mike Watkins MD [address] [facility], [address] [place] [address] [email or web address] Routine general medical examination at [...] EDT) PSA 0.45 0 - 4.00 ng/mL [facility] Blood 06/07/2017 8:16 AM EDT 06/07/2017 8:18 AM EDT Mike Watkins MD LAB BLOOD ORDERABL ES Performing Organization Address [facility]/ZIP Co de Phone Number [address] [address] * (ABNORMAL) Lipid panel (06/07/2017 8:16 AM EDT) HDL 82 mg/dL [facility] Comment: Interpretation: Risk Level ?Males Decreased ? >45 mg/dL Average ? 40-45 mg/dL Increased ? <40 mg/dL CHOLESTEROL 243(H) 0 - 240 mg/dL [facility] TRIGLYCERIDES 123 30 - 160 mg/dL [facility] LDL 136(H) 50 - 129 mg/dL [facility] Comment: LDL levels in terms of risk for coronary heart disease: <100 mg/dL: Optimal 100-129 mg/dL: Near or above optimal 130-159 mg/dL: Borderline high 160-189 mg/dL: High >190 mg/dL: Very High CARDIAC RISK RATIO 3.0(L) 3.4 - 5.0 C [facility] Blood 06/07/2017 8:16 AM EDT 06/07/2017 8:18 AM EDT Mike Watkins MD LAB BLOOD ORDERABL ES Performing Organization Address [facility]/ZIP Co de Phone Number [address] [address] * (ABNORMAL) Basic metabolic panel (06/07/2017 8:16 AM EDT) SODIUM 140 133 - 146 mmol/L [facility] CHLORIDE 102 96 - 108 mmol/L [facility] POTASSIUM 4.6 3.3 - 5.1 mmol/L [facility] CO2 29 21 - 35 mmol/L [facility] BUN 14 6 - 19 mg/dL [facility] CREATININE 0.80 0.5 - 1.5 mg/dL [facility] GLUCOSE 104(H) 70 - 99 mg/dL [facility] CALCIUM 9.3 8.4 - 10.3 mg/dL [facility] EGFR >60 >60 mL/min/1.7 3m2 [facility] Comment:Abnormal if <60. If patient is -Vincentian, multiply the result by 1.21. ANION GAP 14 10 - 20 mmol/L [facility] Blood 06/07/2017 8:16 AM EDT 06/07/2017 8:18 AM EDT Mike Watkins MD LAB BLOOD ORDERABL ES [facility] [address] [place] [address] documented in this encounter Visit Diagnoses Diagnosis [...] documented as of this encounter Care Teams House Painter Relationship Specialty Start Date End Date Mike Watkins MD [address] [place] [address], [address] [place] [address] PCP - General 05/23/17 Mike Watkins MD [address] [place] [address], [address] [place] [address] [email or web address] Insurance Assigned Provider 12/06/1802/10/22 Mike Watkins MD [address] [place] [address], [address] [place] [address] [email or web address] Insurance Assigned Provider 11/09/23 documented as of this encounter Additional Source Comments The information contained in this document represents components of the legal health record. It is not the complete legal health record.[facility]
--- OUTSIDE RECORDS SUMMARY | 2024-11-25 11:49 | XMS_ITS | Encounter Summary ---
Author Organization [facility] Address [address] [employer] [address] [facility] [address] [place] [address] Phone Care Team Providers Care Stuffed Casing Tier Name Role Phone Mike Watkins MD Primary Care Provider + [phone] Mike Watkins MD Unavailable [phone] Reason for Referral * Consultation (Within 1 month) - Authorized Specialty Diagnoses / Procedures Referred By Contac t Referred To Contact Diagnoses Non-seasonal allergic rhinitis Mild intermittent asthma without complication Mike Watkins MD [address] [place] [address], [address] [place] [address] Email: [email or web address] Referral ID Status Reason Start Date Expiration Date V isits Requested Visits Authorized [id number] Authorized 10/21/2024 10/21/2025 6 6 Reason for Visit * Reason Onset Date Comments Referral 10/21/2024 Encounter Details Date Type Department Care Team (Late st Contact Info) Description 10/21/2024 Telephone [facility] [address] [place] [phone] Mike Watkins MD [address] [place] [address], [address] [place], [place] [phone] Referral Social History Tobacco Use Types Packs/Day [...] Winifred Ryan - 10/21/2024 2:07 PM EDT [facility] Top Smart Phrases: Referral Request 1. Name of the office where the patient has been seen/requests to be seen: [facility] 2. Reason for referral/specialist appointment and [...] documented as of this encounter Care Teams Stuffed Casing Tier Relationship Specialty Start Date End Date Mike Watkins MD [address] [place] [address], [address] [place] [address] [email or web address] PCP - General 05/23/17 Mike Watkins MD [address] [place] [address], [address] [place] [address] Insurance Assigned Provider 11/09/23 documented as of this encounter Additional Source Comments The information contained in this document represents components of the legal health record. It is not the complete legal health record.[facility]
--- OUTSIDE RECORDS SUMMARY | 2024-11-25 11:49 | XMS_ITS | Encounter Summary ---
Author Organization [facility] Address [address] [facility] [address] [place] [address] Phone Care Team Providers Care Animal Caretaker Supervisor Name Role Phone Mike Watkins MD Primary Care Provider [phone]- [phone] Mike Watkins MD Unavailable [phone] Mike Watkins MD Unavailable [phone] Encounter Details Date Type Department Care Team (Late st Contact Info) Description 10/31/2018 Procedure Pass [facility]oscopy Admitting Dept Virtual Department [address] [place] [address] Social History Tobacco Use Types Packs/Day Years [...] documented as of this encounter Care Teams Animal Caretaker Supervisor Relationship Specialty Start Date End Date Mike Watkins MD [address] [place] [address], [address] [place] [address] [email or web address] PCP - General 05/23/17 Mike Watkins MD [address] [place] [address], [address] [place] [address] [employer] Insurance Assigned Provider 12/06/1802/10/22 Mike Watkins MD [address] [place] [address], [address] [place] [address] Insurance Assigned Provider 11/09/23 documented as of this encounter Additional Source Comments The information contained in this document represents components of the legal health record. It is not the complete legal health record.[facility]
[2024-12-01 22:58] LABS: Immunoglobulin E 6 kU/L (<OR=114)
[2024-12-03 17:58] LABS: Class Alternaria alternata 0; Class Aspergillus fumigatus 0; Class Bermuda Grass 0; Class Birch 0; Class Cat Dander 0; Class Cladosporium herbarum 0; Class Cockroach 0; Class Common Ragweed 0/1; Class Cottonwood 0; Class Derm. pterony 0; Class Dermatophagoides farinae 0; Class Dog Dander 0; Class Elm 0; Class Maple Box Elder 0; Class Mountain Cedar 0; Class Mouse Urine Protein 0; Class Mugwort 0; Class Oak 0; Class Penicillium crysogenum 0; Class Rough Pigweed 0; Class Sheep Sorrel 0; Class Sycamore 0; Class Timothy Grass 0; Class Walnut Tree 0; Class White Ash 0; Class White Mulberry 0; D001 IgE D pteronyssinus <0.10 kU/L; D002 - IgE D farinae <0.10 kU/L; E001 - IgE Cat Dander <0.10 kU/L; E005 - IgE Dog Dander <0.10 kU/L; E072-IgE Mouse Urine <0.10 kU/L; G002 IgE Bermuda Grass <0.10 kU/L; G006 - IgE Timothy Grass <0.10 kU/L; I006-IgE Cockroach, German <0.10 kU/L; Immunoglobulin E 7 kU/L (<OR=114); M001 IgE Penicillium chrysogen <0.10 kU/L; M002 - IgE Cladosporium herbar <0.10 kU/L; M003 - IgE Aspergillus fumigat <0.10 kU/L; M006 - IgE Alternaria alternat <0.10 kU/L; T001 IgE Maple/Box Elder <0.10 kU/L; T003 IgE Common Silver Birch <0.10 kU/L; T006 - IgE Cedar, Mountain <0.10 kU/L; T007 - IgE Oak, White <0.10 kU/L; T008 IgE Elm, American <0.10 kU/L; T010 - IgE Walnut <0.10 kU/L; T011 - IgE Maple Leaf Sycamore <0.10 kU/L; T014 - IgE Cottonwood <0.10 kU/L; T015 - IgE Ash, White <0.10 kU/L; T070 - IgE White Mulberry <0.10 kU/L; W001 - IgE Ragweed, Short 0.16 kU/L; W006 - IgE Mugwort <0.10 kU/L; W014 IgE Pigweed, Common <0.10 kU/L; W018 IgE Sheep Sorrel <0.10 kU/L
== END 2024-11-25 10:11 | disposition home or self-care (01) ==
LOC: HO.WFDLDS 10:10
PROVIDERS: Visit Provider Nurse Practitioner Family
DX: Z91.09 Other allergy status, other than to drugs and biological substances (principal)
CPT/HCPCS: 36415; 82785; 85025; 86003; 99202

== ENCOUNTER 2025-01-20 08:55 | Outpatient (REF) | payer MEDICARE, SELFPAY ==
--- NOTE | 2025-01-20 08:59 | PFT_ITS ---
Indication: Asthma Spirometry FEV1 to FVC 82%; FEV1 3.79 L; FVC 4.63 L. No significant response to bronchodilators noted. Lung Volumes Total lung capacity 93% predicted Diffusion Capacity DLCO 104% predicted Comparisons None Interpretation No obstructive nor restrictive ventilatory defects identified. No significant response to bronchodilators noted. Lung volumes are within normal limits. Diffusing capacity also within normal limits. If asthma is in the differential methacholine challenge may be helpful in assessing for hyperreactive airways. Clinical correlation warranted. MTDD
[2025-01-20 09:43] VITALS: PULSE 74; O2SAT 97
== END 2025-01-20 08:56 | disposition home or self-care (01) ==
LOC: HO.RESP 08:55
PROVIDERS: PCP Family Medicine; Visit Provider Nurse Practitioner Family
DX: J45.909 Unspecified asthma, uncomplicated (principal)
CPT/HCPCS: 94010; 94640; 94727; 94729

== ENCOUNTER → 2025-01-20 08:59 | Outpatient (BNV) | payer MEDICARE, SELFPAY | PROVIDERS: PCP Family Medicine; Visit Provider Hospitalist | DX: J45.909 Unspecified asthma, uncomplicated (principal) | CPT/HCPCS: 94060; 94727; 94729 ==

== ENCOUNTER 2025-03-02 09:10 | Outpatient (AMB) | payer MEDICARE, SELFPAY ==
[2025-03-02 09:12] VITALS: BP 110/76; PULSE 65; O2SAT 97; BMI 28.2
--- NOTE | 2025-03-02 09:12 | MHC.OFFVIS ---
Vital Signs 03/02/25 09:12 Height 5 ft 10 in Weight 196 lb 6 oz BMI 28.2 BP 110/76 Blood Pressure Location Rt brachial Position Sitting Pulse 65 Pulse Source Pulse Oximeter Pulse Oximetry (%) 97 Oxygen Delivery Method Room Air Intake Visit Reasons: Asthma/PFT Follow Up Allergies amoxicillin Adverse Reaction (Verified 03/02/25 09:18) upset stomach HPI HPI Asthma/PFT Follow Up: Details: Zak is a pleasant 69 year old male, less than 5 pack year history smoker, with underlying asthma. He was initially referred by PCP for pulmonary evaluation. He had previously been prescribed Arnuity however was only using intermittently. When he was not using consistently he reported wheezing, dyspnea as well as cough. When consistently using he had complete resolution of symptoms. He reports persistent symptoms including shortness of breath, wheezing, and coughing, which have been persistent since last Saturday. The patient reports that mowing the lawn exacerbates the symptoms, possibly due to inhaling allergens or irritants. Previously Flovent was sent in place of Arnuity however patient unable to obtain, due to possible insurance coverage. Today he presents to review PFT and RAST. Of note, he also reports 3-4 day h/o productive cough without chest congestion, fever or chills that seems to be improving. [facility] Social History Patient Tobacco Use Status: Former Tobacco user Cigarette Packs Per Day: 1 Years Smoked: 3 Review of Systems Const Denies chills, Denies excessive sweating, Denies fever(s), Denies headache(s) and Denies night sweats Eyes Denies dry eyes, Denies irritation and Denies itchy eyes ENT Reports Normal hearing present, Denies headache(s), Denies nasal congestion, Denies nasal discharge, Denies post nasal drip and Denies sore throat Card Denies chest pain, Denies chest pain at rest, Denies chest pain with activity, Denies claudication, Denies leg edema, Denies orthopnea and Denies paroxysmal nocturnal dyspnea Resp Denies chest congestion, Denies excessive phlegm production, Denies pain on inspiration, Denies pain with cough and Denies stridor Musc Denies myalgias Neuro Reports Normal hearing present and Denies headache(s) Endo Denies excessive sweating Frandy/Lymph Denies lymphadenopathy Aller/Immun Denies itchy eyes and Denies seasonal rhinorrhea Physical Exam Vital Signs: Last Vital Signs Pulse 65 03/02/25 09:12 BP 110/76 03/02/25 09:12 Pulse Ox 97 03/02/25 09:12 Oxygen Delivery Method Room Air 03/02/25 09:12 BMI result Body Mass Index 28.2 Const General: cooperative, healthy appearing, comfortable, no acute distress, well developed and alert Orientation/consciousness: patient oriented x3 Limitations: no limitations HEENT Head: Yes normal to inspection, Yes normocephalic and Yes atraumatic Ears: hearing grossly normal bilaterally and external ears normal Eyes General: appearance normal, both eyes and all related structures Eyelids: Yes eyelids normal Sclerae: sclerae normal EOM: EOMs intact bilaterally Neck Neck: Yes normal visual inspection and Yes no lymphadenopathy Lymphatic: no lymphadenopathy noted Chest Chest palpation & inspection: normal inspection of the chest Resp Effort & Inspection: normal respiratory effort, able to speak in complete sentences, no audible wheezes, no cough, no stridor, not tachypneic, no tripod positioning and no use of accessory muscles Auscultation: clear to auscultation bilaterally Cardio Jugular venous distension: no JVD Rate: regular rate Rhythm: regular rhythm Skin Other: warm, dry General skin exam: no rashes or lesions noted Neuro General: patient oriented x3 Cranial nerves: Yes Normal hearing present Cognition (Neuro): normal cognition Gait exam (Neuro): Normal gait present Extrem General: Yes normal to inspection, Yes capillary refill normal, Yes no clubbing, cyanosis or edema and Yes no pedal edema Psych Appearance: grossly normal and well kempt Speech and movement: Normal speech and movement present and Clear speech present Affect: normal affect Attitude: cooperative Thought process: Normal thought process present Thought content: Normal thought content present Insight: Good insight present (Psych) Judgement: Good judgement present (Psych) Assessment & Plan Assessment & Plan (1) Asthma: Code(s): J45.909 - Unspecified asthma, uncomplicated Category: Medical (2) Environmental allergies: Code(s): Z91.09 - Other allergy status, other than to drugs and biological substances Category: Medical Plan Reviewed PFT which revealed No obstructive nor restrictive ventilatory defects identified. No significant response to bronchodilators noted. Lung volumes are within normal limits. Diffusing capacity also within normal limits. At this time, patient currently using Arnuity intermittently. Encouraged use of daily ICS and monitor symptoms. May need to consider ICS/LABA. Will attempt to send Pulmicort for better insurance coverage. RAST + ragweed, discussed ways to minimize allergen exposure. All questions were answered and patient is in agreement of plan. Will follow-up in 8-10 weeks or sooner if needed. Medications: New budesonide 90 mcg/actuation (Pulmicort Flexhaler) 1 inh inhalation BID 1 ea 3RF Discontinued fluticasone propionate 110 mcg/actuation administer with spacer Discontinued Reason: Patient Completed Course 2 puffs inhalation BID 12 grams 3RF Coding Level of Care Code Est Pt Level 4 (07212) Diagnoses Asthma J45.909 Environmental allergies Z91.09
--- OUTSIDE RECORDS SUMMARY | 2025-03-02 09:37 | XMS_ITS | Encounter Summary ---
Author Organization [facility] Address [address] [facility] [address] [place] [address] Phone Care Team Providers Care Nut Grinder Name Role Phone Mike Watkins MD Primary Care Provider + [phone] Mike Watkins MD Unavailable [phone] Mike Watkins MD Unavailable [phone] Encounter Details Date Type Department Care Team (Late st Contact Info) Description 12/01/2021 Procedure Pass [facility] Endoscopy Admitting Dept Virtual Department [address] [place] [address] Social History Tobacco Use Types Packs/Day Years [...] high school, GED, job training, learning the Lithuanian language, technical skills, or developing parenting skills)? [...] Recorded Sex Assigned at Not on file Legal Sex Male 9:56 PM EDT Gender Identity Not on file Sexual Orientation [...] documented as of this encounter Care Teams Nut Grinder Relationship Specialty Start Date End Date Mike Watkins MD [address] [place] [address], [address] [place] [address] PCP - General 05/23/17 Mike Watkins MD [address] [place] [address], [address] [place] [address] [email or web address] Insurance Assigned Provider 12/06/1802/10/22 Mike Watkins MD [address] [place] [address], [address] [place] [address] [email or web address] Insurance Assigned Provider 11/09/23 documented as of this encounter Additional Source Comments The information contained in this document represents components of the legal health record. It is not the complete legal health record.[facility]
--- OUTSIDE RECORDS SUMMARY | 2025-03-02 09:37 | XMS_ITS ---
Author Organization Unknown ENCOUNTERS Encounter Performer Location Date Diagnosis Diagnosis Status Outpatient ABBY MERCADO DO [address] [address] [id number] *Note: Encounters from your own facility or health system may be excluded. Allergies, Adverse Reactions, Alerts Allergen Type Severity Identification Date Medications Name Date Quantity Days Supplied GPI Number
== END 2025-03-02 09:51 | disposition home or self-care (01) ==
PROVIDERS: PCP Family Medicine; Visit Provider Nurse Practitioner Family
DX: J45.909 Unspecified asthma, uncomplicated (principal); Z91.09 Other allergy status, other than to drugs and biological substances
CPT/HCPCS: 99214

== ENCOUNTER → 2025-03-02 09:10 | Outpatient (BNVA) | payer MEDICARE, SELFPAY | PROVIDERS: PCP Family Medicine; Visit Provider Nurse Practitioner Family | DX: Z91.09 Other allergy status, other than to drugs and biological substances (principal); J45.909 Unspecified asthma, uncomplicated; F17.210 Nicotine dependence, cigarettes, uncomplicated | CPT/HCPCS: 99212 ==

== ENCOUNTER 2025-06-02 08:47 | Outpatient (AMB) | payer MEDICARE, SELFPAY ==
--- OUTSIDE RECORDS SUMMARY | 2025-05-31 15:00 | XMS_ITS | Encounter Summary ---
Author Organization [facility] Address [address] [facility] [address] [place] [address] Phone Care Team Providers Care Hitcher Name Role Phone Mike Watkins MD Primary Care Provider + [phone] Mike Watkins MD Unavailable [phone] Reason for Visit * Reason Comments Foot Problem Glass in foot left h eal 2 weeks ago painful still pt thinks glass is left Encounter Details Date Type Department Care Team (Latest Contact Info) Description 05/31/2025 3:00 PM EDT Office Visit [facility] [address] [place] [address] Renny Rivera CNP [address] [facility], [address] [place] [address] [email or web address] Foreign body (FB) in soft tissue (Primary Dx); Need for prophylactic vaccination with tetanus-diphtheria (Td) Social History Tobacco Use Types Packs/Day Years [...] your housing situation today? I have connie holcomb 12/30/2020 How many times have you [...] on file documented as of this encounter Last Filed Vital Signs Vital Sign Reading Time Taken Comments Blood Pressure 125/78 05/31/2025 3:13 PM EDT Pulse 77 05/31/2025 3:13 PM EDT Temperature 36.2 C (97.2 F) 05/31/2025 3:13 PM EDT Respiratory Rate - - Oxygen Saturation 97% 05/31/2025 3:13 PM EDT Inhaled Oxygen Concentration - - Weight 91.7 kg (202 lb 3.2 oz) 05/31/2025 3:13 P M EDT Height 175.6 cm (5' 9.13 ) 05/31/2025 3:13 PM ED T Body Mass Index 29.74 05/31/2025 3:13 PM EDT documented in this encounter Progress Notes * Renny Rivera CNP - 05/31/2025 3:00 PM EDT Images from the original note were not included. HPI: A couple of weeks ago while at home he stepped on something sharp that he was able to remove. Therewas no broken glass that he was aware of. His tried to explore the area with tweezers. The discomfort improved a bit until last week when it worsened again. He was out of town so couldn't be evaluated. There has been no drainage or pus. The wound is not open. The heel feels slightly numb. Vitals: 05/31/25 1513 BP: 125/78 BP Location: Left arm Patient Position: Sitting Cuff Size: Large Pulse: 77 Temp: 36.2 ??C (97.2 ??F) SpO2: 97% Weight: 91.7 kg (202 lb 3.2 oz) Height: 175.6 cm (5' 9.13 ) Current Outpatient Medications on File Prior to Visit Medication Sig Dispense Refill Last Dispense albuterol 90 mcg/actuation inhaler Inhale 2 puffs into the lungs every 6 (six) hours as needed for wheezing. 18 g 0 Unknown (outside pharmacy) atorvastatin (LIPITOR) 10 MG tablet TAKE 1 TABLET BY MOUTH EVERY DAY 90 tablet 3 Unknown (outside pharmacy) eletriptan (RELPAX) 40 MG tablet Take 1 tablet (40 mg total) by mouth as directed. 1 tablet at onset of headache, may repeat x1 after 2 hours if headache returns 10 tablet 0 Unknown (outside pharmacy) fluticasone furoate (ARNUITY ELLIPTA) 100 mcg/actuation DsDv INHALE 1 PUFF BY MOUTH EVERY DAY 30 each 4 Unknown (outside pharmacy) fluticasone propionate (FLONASE) 50 mcg/actuation nasal spray 1 spray by Nasal route daily. 16 g 5 Unknown (outside pharmacy) ibuprofen (ADVIL,MOTRIN) 200 MG tablet Take 400 mg by mouth 2 (two) times a day as needed. Takes BID for arthritis Unknown (patient-reported) venlafaxine (EFFEXOR-XR) 75 MG 24 hr capsule TAKE 3 CAPSULES BY MOUTH EVERY DAY 270 capsule 3 Unknown (outside pharmacy) cetirizine (ZYRTEC) 10 MG tablet Take 10 mg by mouth daily. (Patient not taking: Reported on 05/31/2025) Unknown (patient-reported) meloxicam (MOBIC) 15 MG tablet Take 1 tablet (15 mg total) by mouth daily for 15 days. With food 15tablet 0 Unknown (outside pharmacy) XDEMVY 0.25 % Drop Place 1 drop into each eye 2 (two) times a day. (Patient not taking: Reported on05/31/2025) Unknown (patient-reported) No current facility-administered medications on file prior to visit. Patient Active Problem List Diagnosis Chronic depression Other hyperlipidemia Migraine without aura and without status migrainosus, not intractable Atherosclerosis of aorta Non-seasonal allergic rhinitis Mild intermittent asthma without complication Exam: General appearance: Alert, pleasant, in no acute distress. HEENT: NC/AT. EOMI. Conjunctiva clear. Lungs: Regular breathing rate and effort. Musculoskeletal: Normal gait without assistive devices. Skin: There is a wound to the left heel. The area is cleansed with alcohol. Using fine tweezers andpressure I was able to grasp the edge of the foreign body and remove it. It was an arrow head shaped piece of clear glass. No other foreign body felt in the wound. No drainage. He tolerated well. Wound was covered with bacitracin and bandage. Psychological: Affect is normal. Appropriate eye contact. Thought process and insight are normal. A/P: Assessment & Plan Foreign body (FB) in soft tissue Wash with soap and water twice daily. Cover if active. I do not believe that he needs oral antibiotics. We reviewed symptoms of infection that would warrant re-evaluation. If he has persistent discomfort, I will order x-ray to evaluate for radiopaque foreign body and refer to general surgery. He states that it feels a bit better after the procedure. Need for prophylactic vaccination with tetanus-diphtheria (Td) documented in this encounter Plan of Treatment Upcoming Encounters Date Type Department Care Team (Late st Contact Info) Description 06/03/2025 10:00 AM EDT Telemedicine [facility] [address] [address] Lima Cai CNP [address] [place] [address] [email or web address] documented as of this encounter Visit Diagnoses Diagnosis Foreign body (FB) in soft tissue- Primary Need for prophylactic vaccination with tetanus-diphtheria (Td) documented in this encounter Additional Health Concerns Assessment Noted Time PHQ-2 Depression Total Score: 0 02/14/20 24 8:40 AM EDT documented as of this encounter Care Teams Hitcher Relationship Specialty Start Date End Date Mike Watkins MD [address] [facility], [address] [place] [address] [email or web address] PCP - General 05/23/17 Mike Watkins MD [address] [facility] [place] [address] [email or web address] Insurance Assigned Provider 11/09/23 documented as of this encounter Additional Source Comments The information contained in this document represents components of the legal health record. It is not the complete legal health record.[facility]
[2025-06-02 08:50] VITALS: BP 100/66; PULSE 71; O2SAT 97; BMI 29.0
--- NOTE | 2025-06-02 08:50 | MHC.OFFVIS ---
Vital Signs 06/02/25 08:50 Height 5 ft 10 in Weight 202 lb 2 oz BMI 29.0 BP 100/66 Blood Pressure Location Rt brachial Position Sitting Pulse 71 Pulse Source Pulse Oximeter Pulse Oximetry (%) 97 Oxygen Delivery Method Room Air Intake Visit Reasons: Asthma/PFT Follow Up Allergies amoxicillin Adverse Reaction (Verified 06/02/25 08:55) upset stomach HPI HPI Asthma/PFT Follow Up: Details: Zak is a pleasant 69 year old male, less than 5 pack year history smoker, with underlying asthma. He had previously been prescribed Arnuity however was only using intermittently. When he was not using consistently he reported wheezing, dyspnea as well as cough. When consistently using he had complete resolution of symptoms. Previously Flovent was sent in place of Arnuity however patient unable to obtain, due to possible insurance coverage. At the last visit, Pulmicort was sent but not covered so patient has returned to using Arnuity most days. He reports resolution of wheezing and dyspnea however continues with intermittent dry cough that worsens at night and also notes ongoing productive cough with green sputum. Denies chest congestion, fevers or chills. Denies any visits to urgent care or hospitalizations related to respiratory distress. [facility] Social History Patient Tobacco Use Status: Former Tobacco user Cigarette Packs Per Day: 1 Years Smoked: 3 Review of Systems Const Denies chills, Denies excessive sweating, Denies fever(s), Denies headache(s) and Denies night sweats Eyes Denies dry eyes, Denies irritation and Denies itchy eyes ENT Reports Normal hearing present, Denies headache(s), Denies nasal discharge, Denies post nasal drip, Reports sinus pain, Reports sinus pressure and Denies sore throat Card Denies chest pain, Denies chest pain at rest, Denies chest pain with activity, Denies claudication, Denies leg edema, Denies dyspnea on exertion, Denies orthopnea and Denies paroxysmal nocturnal dyspnea Resp Reports change in phlegm color, Denies chest congestion, Reports cough, Denies hemoptysis, Denies pain on inspiration, Denies pain with cough, Denies dyspnea on exertion, Denies stridor and Denies wheezing Musc Denies myalgias Neuro Reports Normal hearing present and Denies headache(s) Endo Denies excessive sweating Frandy/Lymph Denies lymphadenopathy Aller/Immun Denies itchy eyes, Denies seasonal rhinorrhea and Denies wheezing Physical Exam Vital Signs: Last Vital Signs Pulse 71 06/02/25 08:50 BP 100/66 06/02/25 08:50 Pulse Ox 97 06/02/25 08:50 Oxygen Delivery Method Room Air 06/02/25 08:50 BMI result Body Mass Index 29.0 Const General: cooperative, healthy appearing, comfortable, no acute distress, well developed and alert Nutritional Appearance: obese Orientation/consciousness: patient oriented x3 Limitations: no limitations HEENT Head: Yes normal to inspection, Yes normocephalic and Yes atraumatic Ears: hearing grossly normal bilaterally and external ears normal Eyes General: appearance normal, both eyes and all related structures Eyelids: Yes eyelids normal Sclerae: sclerae normal EOM: EOMs intact bilaterally Neck Neck: Yes normal visual inspection and Yes no lymphadenopathy Lymphatic: no lymphadenopathy noted Chest Chest palpation & inspection: normal inspection of the chest Resp Effort & Inspection: normal respiratory effort, able to speak in complete sentences, no audible wheezes, no cough, no stridor, not tachypneic, no tripod positioning and no use of accessory muscles Auscultation: clear to auscultation bilaterally Cardio Jugular venous distension: no JVD Rate: regular rate Rhythm: regular rhythm Skin Other: warm, dry General skin exam: no rashes or lesions noted Neuro General: patient oriented x3 Cranial nerves: Yes Normal hearing present Cognition (Neuro): normal cognition Gait exam (Neuro): Normal gait present Extrem General: Yes normal to inspection, Yes capillary refill normal, Yes no clubbing, cyanosis or edema and Yes no pedal edema Psych Appearance: grossly normal and well kempt Speech and movement: Normal speech and movement present and Clear speech present Affect: normal affect Attitude: cooperative Thought process: Normal thought process present Thought content: Normal thought content present Insight: Good insight present (Psych) Judgement: Good judgement present (Psych) Assessment & Plan Assessment & Plan (1) Asthma: Code(s): J45.909 - Unspecified asthma, uncomplicated Category: Medical (2) Environmental allergies: Code(s): Z91.09 - Other allergy status, other than to drugs and biological substances Category: Medical Plan Will treat bronchitic symptoms with azithromycin, he is aware to call if symptoms do not improve. If no improvements will send for CXR and possibly sputum culture. Advised patient to use albuterol MDI QHS in addition to Arnuity. Encouraged consistent use of ICS and monitor symptoms. May need to consider ICS/LABA. All questions were answered and patient is in agreement of plan. Will follow-up in 3 months or sooner if needed. Medications: New azithromycin For 250 mg dose pack: take 500 mg today (day 1), then 250 mg for 4 days (days 2-5) PO 6 tabs 0RF fluticasone furoate 100 mcg/actuation (Arnuity Ellipta) 1 inh inhalation DAILY 30 ea 3RF Coding Level of Care Code Est Pt Level 4 (08538) Diagnoses Asthma J45.909 Environmental allergies Z91.09
--- OUTSIDE RECORDS SUMMARY | 2025-06-02 09:32 | XMS_ITS | Encounter Summary ---
Author Organization [facility] Address [address] [facility] [address] [place] [address] Phone Care Team Providers Care Navy Senior Officer Name Role Phone Mike Watkins MD Primary Care Provider [phone] Mike Watkins MD Unavailable [phone] Reason for Visit * Reason Onset Date Comments Triage 05/31/2025 Encounter Details Date Type Department Care Team (Late st Contact Info) Description 05/31/2025 Telephone [facility] [address] [place] [address] Lilibeth [email or web address] Triage Social History Tobacco Use Types Packs/Day Years [...] as of this encounter Progress Notes * Lima Farrell, CRISTINA - 05/31/2025 2:26 PM EDT Zak reports he stepped on a small piece of broken glass in his kitchen 2 weeks ago and a shard went into his heel. He thought he removed it all but he can still feel something sharp and it is very painful to bear weight on. No drainage or warmth, but swollen and red. * Lilibeth Murry - 05/31/2025 2:02 PM EDT [facility] Top Smart Phrases: Complete the Following for ALL Patient Symptoms VCS Red [place] Yellow Green Tool Call Back Number: (& caller's name if not the patient) [phone] Description of Symptoms: What symptoms are you experiencing? Foreign body + stepped on glass + heel pain When did the symptoms start? 2 weeks Has this happened before? No - symptoms started on 2 weeks 1) Enter the Reason for Call (TRIAGE) & RFC Comment (COLOR + Symptom) (Ex: TRIAGE - YELLOW, tick bite ) 2) Select the color-based designation below before taking next steps & documenting the outcome Green Call Designation & Outcome Green Symptom(s): No chief complaint on file. Should Be Booked Within 2-3... Days [] Weeks [] Schedule an Appointment Based on the Listed Green Options in [facility] (PC & Pedi) OR Offer Care Alternative Options (UC/VUC) from [facility] Reference Guide Tabs Scheduling Outcome: Patient declined to make appointment/utilize alternative care options & is requesting to speak with nurse or retail support manager for further guidance. (Caller is aware it may take up to 24 hrs for a call back) Route TE (or not) according to Practice-Specific guidelines. documented in this encounter Plan of Treatment Upcoming Encounters Date Type Department Care Team (Late st Contact Info) Description 06/03/2025 10:00 AM EDT Telemedicine [facility] [address] [place] [address] Lima Cai CNP [address] [facility] [address] [place] [address] documented as of this encounter Visit Diagnoses Not on filedocumented in this encounter Additional Health Concerns Assessment Noted Time PHQ-2 Depression Total Score: 0 02/14/20 24 8:40 AM EDT documented as of this encounter Care Teams Navy Senior Officer Relationship Specialty Start Date End Date Mike Watkins MD [address] [place] [address], [address] [place] [address] [email or web address] PCP - General 05/23/17 Mike Watkins MD [address] [place] [address], [address] [place] [address] [email or web address] Insurance Assigned Provider 11/09/23 documented as of this encounter Additional Source Comments The information contained in this document represents components of the legal health record. It is not the complete legal health record.[facility]
--- OUTSIDE RECORDS SUMMARY | 2025-06-02 09:32 | XMS_ITS | Clinical Summary ---
Author Organization [facility] Address [address] [facility] [address] [place] [address] Phone Care Team Providers Care Lead Web Developer Name Role Phone Mike Watkins MD Primary Care Provider [phone] Mike Watkins MD Unavailable [phone] Allergies Active Allergy Reactions Criticality Noted Date Comments Amoxicillin Low 10/31/2018 nausea Medications ibuprofen (ADVIL,MOTRIN) 200 MG tablet Take 400 mg by mouth 2 (two) times a day as needed. Takes BID for arthritis 2 Active eletriptan (RELPAX) 40 MG tablet Take 1 tablet (40 mg total) by mouth as directed. 1 tablet at onset of headache, may repeat x1 after 2 hours if headache returns 10 tablet 9 Active albuterol 90 mcg/actuation inhaler Inhale 2 puffs into the lungs every 6 (six) hours as needed for wheezing. 18 g 4 Active fluticasone propionate (FLONASE) 50 mcg/actuation nasal spray 1 spray by Nasal route daily. 16 g 5 4 Active XDEMVY 0.25 % Drop Place 1 drop into each eye 2 (two) times a day. 4 Active cetirizine (ZYRTEC) 10 MG tablet Take 10 mg by mouth daily. Active meloxicam (MOBIC) 15 MG tablet Take 1 tablet (15 mg total) by mouth daily for 15 days. With food 15 tablet 4 Active atorvastatin (LIPITOR) 10 MG tablet TAKE 1 TABLET BY MOUTH EVERY DAY 90 tablet 3 5 Active fluticasone furoate (ARNUITY ELLIPTA) 100 mcg/actuation DsDv INHALE 1 PUFF BY MOUTH EVERY DAY 30 each 4 5 Active venlafaxine (EFFEXOR-XR) 75 MG 24 hr capsuleIndicati ons:Chronic depression TAKE 3 CAPSULES BY MOUTH EVERY DAY 270 capsule 3 5 Active Active Problems Problem Noted Date Diagnosed Date [...] fits or wheezing episodes. -Reach out to home coordinator to explore cost-effective alternatives to Arnuity. [...] Encounters Date Type Department Care Team Description 05/31/2025 3:00 PM EDT Office Visit [facility] [place] [address] [place] [address] Renny Rivera, PLUG PASTER Foreign body (FB) in soft tissue (Primary Dx); Need for prophylactic vaccination with tetanus-diphtheria (Td) 05/31/2025 Telephone [facility] [address] [place] [address] Lilibeth Murry Triage 05/31/2025 Telephone [facility] TE[facility] [address] [place], [place] [id number] Mike Watkins MD Care Coordination ([facility] Virtual AWV Outreach/) 04/13/2025 Refill [facility] [address] [place] [address] Mike Watkins MD Medication Refill from Last 3 Months Immunizations Immunization Administration Dates Next Due COVID-19 (Pre-05/27) Moderna Vaccine, mRNA, PF 11/01/2020,10/04/2020 Influenza High-Dose Quadriva lent Preservative Free IM 05/21/2023,07/09/2022,06/30/2021 Influenza High-Dose Trivalen t Preservative Free IM 07/13/2024 Influenza Quadrivalent MDCK Preservative Free IM 05/15/2020,06/01/2018 Influenza Quadrivalent Preservative Free IM 05/05 Influenza Trivalent Adjuvant ed Preservative free IM 05/14/2025 Pneumococcal conjugate PCV20 02/12/2023 Pneumococcal polysaccharide PPSV23 12/30/2020 RSV Vaccine (monovalent, adjuvanted) 07/24/2023 Td (adult) 5 Lf Tetanus Toxo id, PF, Adsorbed 05/31/2025 Td (adult),2 Lf Tetanus Toxo id, PF, Adsorbed 11/19/2007 Tdap 09/30/2018 Zoster live 01/04/2015 Zoster recombinant 11/01/2024,07/13/2024 Family History Medical History Relation Comments Heart [...] F) 05/31/2025 3:13 PM EDT Respiratory Rate 16 11/06/2024 1:28 PM EDT Oxygen Saturation 97% 05/31/2025 3:13 PM EDT Inhaled Oxygen Concentration - - Weight 91.7 kg (202 lb 3.2 oz) 05/31/2025 3:13 P M EDT Height 175.6 cm (5' 9.13 ) 05/31/2025 3:13 PM ED T Body Mass Index 29.74 05/31/2025 3:13 PM EDT Plan of Treatment Upcoming Encounters Date Type Department Care Team (Late st Contact Info) Description 06/03/2025 10:00 AM EDT Telemedicine [facility] [address] [place] [address] Lima Cai, PLUG PASTER [address] [employer] [facility] [address] [place] [phone] Health Maintenance Due Date Last Done Comments COLOGUARD 1999 FIT TEST 1999 FOBT 1999 SIGMOIDOSCOPY 1999 VIRTUAL COLONOSCOPY 1999 DEPRESSION SCREENING 02/13/2025 02/14/2024 LIPID PANEL 02/19/2025 02/20/2024, 02/02, 01/30/2022, Additional history exists COVID-19 VACCINE ( season) 2025 07/24/2023, 06/30/2021, 11/01/2020, Additional history exists COLONOSCOPY 12/01/2026 12/01/2021, 10/04, 12/09/2007 COLORECTAL CANCER SCREENING 12/01/2026 Adult Td,Tdap Booster 05/31/2035 05/31/2025 , 09/30/2018, 11/19/2007 HEPATITIS C SCREENING Completed 10/06/2018, 019 ABDOMINAL AORTIC ANEURYSM (AAA) SCREENING Completed 11/25/2020 PNEUMOCOCCAL VACCINES (50+ years) Completed 02/12/2023, 12/30/2020 RSV VACCINE Completed 07/24/2023 ZOSTER VACCINES Completed 11/01/2024, 04/2024, 01/04/2015 INFLUENZA VACCINE Completed 05/14/2025, , 05/21/2023, Additional history exists SMOKING STATUS SCREENING (Once After 26 Yrs) Completed 05/31/2025 HEPATITIS A VACCINES Aged Out No long er eligible based on patient's age to complete this topic HIB VACCINES Aged Out No longer eligi ble based on patient's age to complete this topic MENINGOCOCCAL VACCINES (ACWY) Aged Out No longer eligible based on patient's age to complete this topic MENINGOCOCCAL VACCINES (B) Aged Out N o longer eligible based on patient's age to complete this topic Medical Devices Implanted Type Area Occupational Therapist Assistant Device Identifier Shelf Expiration Date Model / Serial / Lot Surya Left: Hip Hemoclip Duraclip [id number] Lower Bx/10ea - [id number] Implanted:Qty: 1 on 10/31/2018 by Garo Alvarado MD at [facility] [employer] CONMED [id number] / / Procedures Procedure Name Priority Date/Time [...] (02/20/2024 9:49 AM EDT) HDL 93 mg/dL [facility] Comment: Interpretation <40 mg/dL: Low HDL cholesterol (major risk factor for CHD) Greater than or equal to 60 mg/dL: High HDL cholesterol ( negative risk factor for CHD) HDL - cholesterol is affected by a number of factors, e.g. smoking, excerise, hormones, sex and age. CHOLESTEROL 217 0 - 240 mg/dL [facility] TRIGLYCERIDES 84 30 - 160 mg/dL [facility] LDL 107 50 - 129 mg/dL [facility] Comment: LDL levels in terms of risk for coronary heart disease: <100 mg/dL: Optimal 100-129 mg/dL: Near or above optimal 130-159 mg/dL: Borderline high 160-189 mg/dL: High >190 mg/dL: Very High CARDIAC RISK RATIO 2.3(L) 3.4 - 5.0 [facility] Blood 02/20/2024 9:49 AM EDT 02/20/2024 9:50 AM EDT Mike Watkins MD LAB BLOOD ORDERABLES Final Result [address] [address] * ENDOSCOPY, COLON (12/01/2021 8:34 AM EDT) Narrative Transcriptions Garo Alvarado MD - 12/01/2021 8:34 AM EDT Patient Name: Zak Calvin MD:: GARO ALVARADO MD Procedure Date: 12/01/2021 8:34 AM Date of : 1955 Age: 66 Admit Type: Outpatient Gender: Male Room: [facility] EN 02 Referring MD: MIKE WATKINS MD Exam Type: [...] history of colonic polyps CPT copyright 2020 [employer]. All rights reserved. The codes documented in this report are preliminary and upon coordinator hotels reviewmay be revised to meet current compliance requirements. Procedure Date: 12/01/2021 8:34:[address] [place] [address] Mike Watkins MD GI PROCEDURE ORDERABLES Fi nal Result * US Abdominal Aortic Screening (11/25/2020 8:29 [...] IMPRESSION: Aortic atherosclerotic changes without aneurysmal dilatation. us Mike Watkins MD IMG US ABDOMEN Final Resu lt * Hepatitis C antibody, qualitative (10/06/2018 8:02 AM EST) HCV Negative Negative [facility] Comment: This is a screening test and should be confirmed with molecular testing Blood 10/06/2018 8:02 AM EST 10/06/2018 8:04 AM EST us Mike Watkins MD LAB BLOOD ORDERABLES Final Result [facility] [address] [place] [address] from Last 3 Months or Most Recently Relevant to Health Maintenance Insurance [facility] MEDICARE SUPPLEMENT MEDICARE PART A & B [facility] MEDICARE SUPPLEMENT MEDICARE PART A & B [facility] MEDICARE SUPPLEMENT MEDICARE PART A & B [facility] MEDICARE SUPPLEMENT MEDICARE PART A & B [facility] MEDICARE SUPPLEMENT MEDICARE PART A & B [facility] MEDICARE SUPPLEMENT MEDICARE PART A & B [facility] MEDICARE SUPPLEMENT MEDICARE PART A & B [facility] MEDICARE SUPPLEMENT MEDICARE PART A & [place] [address] [place] [address] MEDICARE SUPPLEMENT MEDICARE PART A & B Care Teams Lead Web Developer Relationship Specialty Start Date End Date Mike Watkins MD [address] [place] [address], [address] [place] [address] PCP - General 05/23/17 Mike Watkins MD [address] [place] [address], [address] [place] [address] Insurance Assigned Provider 11/09/23 Additional Source Comments The information contained in this document represents components of the legal health record. It is not the complete legal health record.[facility]
--- OUTSIDE RECORDS SUMMARY | 2025-06-02 09:32 | XMS_ITS | Encounter Summary ---
Author Organization [facility] Address [address] [employer] [facility] [address] [place] [address] Phone Care Team Providers Care Supervisor Sheet Manufacturing Name Role Phone Mike Watkins MD Primary Care Provider [phone] Mike Watkins MD Unavailable [phone] Mike Watkins MD Unavailable [phone] Encounter Details Date Type Department Care Team (Late st Contact Info) Description 12/01/2021 Procedure Pass [facility] Endoscopy Admitting Dept Virtual Department [address] [place] [address] Social History Tobacco Use Types Packs/Day Years [...] high school, GED, job training, learning the Jordanian language, technical skills, or developing parenting skills)? [...] as of this encounter Plan of Treatment Upcoming Encounters Date Type Department Care Team (Late st Contact Info) Description 06/03/2025 10:00 AM EDT Telemedicine [facility] SU[facility] [address] [employer] [place] [address] Lima Cai CNP 2 [employer] [facility] [address] [place] [address] documented as of this encounter [...] documented as of this encounter Care Teams Supervisor Sheet Manufacturing Relationship Specialty Start Date End Date Mike Watkins MD [address] [facility], [address] [place] [address] [email or web address] [facility] - General 05/23/17 Mike Watkins MD [address] [facility] [place] [address] [email or web address] Insurance Assigned Provider 12/06/1802/10/22 Mike Watkins MD [address] [facility] [place] [address] [email or web address] Insurance Assigned Provider 11/09/23 documented as of this encounter Additional Source Comments The information contained in this document represents components of the legal health record. It is not the complete legal health record.[facility]
--- OUTSIDE RECORDS SUMMARY | 2025-06-02 09:32 | XMS_ITS | Encounter Summary ---
Author Organization [facility] Address [address] [employer] [facility] [address] [place] [address] Phone Care Team Providers Care Information Security Analyst Name Role Phone Mike Watkins MD Primary Care Provider + [phone] Mike Watkins MD Unavailable [phone] Mike Watkins MD Unavailable [phone] Encounter Details Date Type Department Care Team (Late st Contact Info) Description 10/31/2018 Procedure Pass [facility] Endoscopy Admitting Dept Virtual Department [address] [place] [address] Social History Tobacco Use Types Packs/Day Years [...] Telemedicine [facility] [address] [place] [address] Lima Cai CNP [address] [employer] [address] [place] [phone] documented as of this encounter Visit Diagnoses [...] documented as of this encounter Care Teams Information Security Analyst Relationship Specialty Start Date End Date Mike Watkins MD [address] [place] [address], [address] [place] [address] PCP - General 05/23/17 Mike Watkins MD [address] [place] [address], [address] [address] Insurance Assigned Provider 12/06/1802/10/22 Mike Watkins MD [address] [place] [address], [address] [place] [address] Insurance Assigned Provider 11/09/23 documented as of this encounter Additional Source Comments The information contained in this document represents components of the legal health record. It is not the complete legal health record.[facility]
--- OUTSIDE RECORDS SUMMARY | 2025-06-02 09:34 | XMS_ITS | Encounter Summary ---
Author Organization [facility] Address [address] [employer] [facility] [address] [place] [address] Phone Care Team Providers Care [facility]astic [facility] Products Assembler Name Role Phone Mike Watkins MD Primary Care Provider + [phone] Mike Watkins MD Unavailable [phone] Mike Watkins MD Unavailable [phone] Encounter Details Date Type Department Care Team (Latest Contact Info) Description 06/07/2017 Transcribe Orders [facility] [address] [place], [place] [phone] Mike Watkins MD [address] [facility], [address] [place] [address] [email or web address] Routine general medical examination at a [...] Telemedicine [facility] [address] [place] [address] Lima Cai, LAYNE [address] [employer] [address] [place] [address] [phone] (work) [email or web address] documented as of this encounter Results * PSA (screening) (06/07/2017 8:16 AM EDT) PSA 0.45 0 - 4.00 ng/mL [facility] Blood 06/07/2017 8:16 AM EDT 06/07/2017 8:18 AM EDT Mike Watkins MD LAB BLOOD ORDERABLES Final Result Performing Organization Address City/[facility]/ZIP Co de Phone Number [address] [address] * (ABNORMAL) Lipid panel (06/07/2017 8:16 AM EDT) Pathologist [facility] HDL 82 mg/dL [facility] Comment: Interpretation: Risk Level Males Decreased >45 mg/dL Average 40-45 mg/dL Increased <40 mg/dL CHOLESTEROL 243(H) 0 - 240 mg/dL [facility] TRIGLYCERIDES 123 30 - 160 mg/dL [facility] LDL 136(H) 50 - 129 mg/dL [facility] Comment: LDL levels in terms of risk for coronary heart disease: <100 mg/dL: Optimal 100-129 mg/dL: Near or above optimal 130-159 mg/dL: Borderline high 160-189 mg/dL: High >190 mg/dL: Very High CARDIAC RISK RATIO 3.0(L) 3.4 - 5.0 [facility] Blood 06/07/2017 8:16 AM EDT 06/07/2017 8:18 AM EDT us Mike Watkins MD LAB BLOOD ORDERABLES Final Result Performing Organization Address [facility]/ZIP Co de Phone Number [address] [address] * (ABNORMAL) Basic metabolic panel (06/07/2017 8:16 AM EDT) Pathologist [facility] SODIUM 140 133 - 146 mmol/L [facility] CHLORIDE 102 96 - 108 mmol/L [facility] POTASSIUM 4.6 3.3 - 5.1 mmol/L [facility] CO2 29 21 - 35 mmol/L [facility] BUN 14 6 - 19 mg/dL [facility] CREATININE 0.80 0.5 - 1.5 mg/dL [facility] GLUCOSE 104(H) 70 - 99 mg/dL [facility] CALCIUM 9.3 8.4 - 10.3 mg/dL [facility] EGFR >60 >60 mL/min/1.7 3m2 [facility] Comment:Abnormal if <60. If patient is -Iraqi, multiply the result by 1.21. ANION GAP 14 10 - 20 mmol/L [facility] Blood 06/07/2017 8:16 AM EDT 06/07/2017 8:18 AM EDT Mike Watkins MD LAB BLOOD ORDERABLES Final Result Performing Organization Address City/State/[facility] Co de Phone Number [address] [phone] documented in this encounter Visit Diagnoses Diagnosis [...] documented as of this encounter Care Teams [facility] Products Assembler Relationship Specialty Start Date End Date Mike Watkins MD [address] [place] [address], [address] [place] [address] [email or web address] PCP - General 05/23/17 Mike Watkins MD [address] [place] [address], [address] [place] [address] [email or web address] Insurance Assigned Provider 12/06/1802/10/22 Mike Watkins MD [address] [place] [address], [address] [place] [address] [email or web address] Insurance Assigned Provider 11/09/23 documented as of this encounter Additional Source Comments The information contained in this document represents components of the legal health record. It is not the complete legal health record.[facility]
--- OUTSIDE RECORDS SUMMARY | 2025-06-02 09:34 | XMS_ITS | Encounter Summary ---
Author Organization [facility] Address [address] [facility] [address] [place] [address] Phone Care Team Providers Care Licensed Marriage And Family Therapist Name Role Phone Mike Watkins MD Primary Care Provider + [phone] Mike Watkins MD Unavailable [phone] Reason for Visit * Reason Onset Date Comments Care Coordination 05/31/2025 [facility] Virtual A [place] Outreach Encounter Details Date Type Department Care Team (Late st Contact Info) Description 05/31/2025 Telephone [facility] Physicians -[facility] TEAM [address] [place] [address] Mike Watkins MD [address] [facility], [address] [place] [address] [email or web address] Care Coordination ([facility] Virtual AWV Outreach/) Social History Tobacco Use Types Packs/Day Years [...] as of this encounter Progress Notes * Tatiana De Souza - 05/31/2025 10:22 AM EDT [facility] [place] Population Health Service Organization ([facility]) Annual Wellness Project: Patient has been identified as an individual who would benefit from a virtual Annual Wellness Visitthrough the [facility] [place] [place] [facility] AWV Project. Patient consented to the visit. Patient has been scheduled for Virtual Care Support Program . Tatiana De Souza [facility] Licensed Marriage And Family Therapist documented in this encounter Plan of Treatment Upcoming Encounters Date Type Department Care Team (Late st Contact Info) Description 06/03/2025 10:00 AM EDT Telemedicine [facility] CLINIC SUPPORT [address] [place] [address] Lima Cai CNP [address] [employer] [facility] [address] [place] [phone] [email or web address] documented as of this encounter Visit Diagnoses Not on filedocumented in this encounter Additional Health Concerns Assessment Noted Time PHQ-2 Depression Total Score: 0 02/14/20 24 8:40 AM EDT documented as of this encounter Care Teams Licensed Marriage And Family Therapist Relationship Specialty Start Date End Date Mike Watkins MD [address] [facility], [address] [place] [address] [email or web address] PCP - General 05/23/17 Mike Watkins MD [address] [facility], [address] [place] [address] [email or web address] Insurance Assigned Provider 11/09/23 documented as of this encounter Additional Source Comments The information contained in this document represents components of the legal health record. It is not the complete legal health record.[facility]
== END 2025-06-02 09:12 | disposition home or self-care (01) ==
LOC: HO.HPSW 08:47
PROVIDERS: PCP Family Medicine; Visit Provider Nurse Practitioner Family
DX: J45.909 Unspecified asthma, uncomplicated (principal); Z91.09 Other allergy status, other than to drugs and biological substances
CPT/HCPCS: 99214

== ENCOUNTER → 2025-06-02 08:47 | Outpatient (BNVA) | payer MEDICARE, SELFPAY | PROVIDERS: PCP Family Medicine; Visit Provider Nurse Practitioner Family | DX: Z91.09 Other allergy status, other than to drugs and biological substances (principal); J45.909 Unspecified asthma, uncomplicated | CPT/HCPCS: 99212 ==